=== PATIENT | male | born 1940 | race Caucasian/White ===

== ENCOUNTER → 2016-07-28 | Outpatient (CLI) | payer OTHER ==
[2016-07-28 12:32] LABS: BASOPHILS # (AUTO) 0.1 X10^3/uL (0.0-0.1); BASOPHILS % (AUTO) 1.2 % (0.2-1.0); EOSINOPHILS # (AUTO) 0.1 x10^3/uL (0.0-0.2); EOSINOPHILS % (AUTO) 1.6 % (0.9-2.9); HEMATOCRIT 46.2 % (42.0-54.0); LYMPHOCYTES # (AUTO) 1.3 X10^3/uL (1.3-2.9); LYMPHOCYTES % (AUTO) 14.7 % (21.0-51.0); MEAN CORPUSCULAR HEMOGLOBIN 29.9 pg (27.0-34.0); MEAN CORPUSCULAR HGB CONC 32.4 g/dL (33.0-35.0); MEAN CORPUSCULAR VOLUME 92.3 fL (80.0-100.0); MEAN PLATELET VOLUME 7.1 fL (7.4-11.0); MONOCYTES % (AUTO) 10.9 % (0.0-13.0); NEUTROPHILS # (AUTO) 6.4 x10^3/uL (2.2-4.8); NEUTROPHILS % (AUTO) 71.6 % (42.0-75.0); PLATELET COUNT 256 X10^3/uL (150.0-450.0); RED CELL DISTRIBUTION WIDTH 16.4 % (11.6-16.5)
[2016-07-28 12:43] LABS: BILIRUBIN,URINE NEGATIVE (NEGATIVE); BLOOD/HEMOGLOBIN,URINE NEGATIVE (NEGATIVE); GLUCOSE, URINE NEGATIVE (NEGATIVE); KETONES,URINE NEGATIVE (NEGATIVE); LEUKOCYTE ESTERASE ,URINE NEGATIVE (NEGATIVE); NITRITES,URINE NEGATIVE (NEGATIVE); PROTEIN,URINE NEGATIVE (NEGATIVE); UROBILINOGEN,URINE NORMAL (NORMAL)
[2016-07-28 12:50] LABS: ALANINE AMINOTRANSFERASE 38 Units/L (12-78); ALBUMIN 3.9 g/dL (3.4-5.0); ALKALINE PHOSPHATASE 81 Units/L (46-116); ASPARTATE AMINO TRANSFERASE 33 Units/L (15-37); BLOOD UREA NITROGEN 31 mg/dL (7-18); CALCIUM 9.2 mg/dL (8.5-10.1); CARBON DIOXIDE 31.1 mmol/L (21-32); CHLORIDE 104 mmol/L (98-107); GLUCOSE 94 mg/dL (65-99); SODIUM 142 mmol/L (136-145); TOTAL PROTEIN 7.9 g/dL (6.4-8.2); eGFR BLACK RACES 55 (>60); eGFR NON BLACK RACES 45 (>60)
[2016-07-28 12:52] LABS: APPEARANCE,URINE CLEAR (CLEAR); BACTERIA,URINE TRACE /HPF (NEGATIVE); COLOR,URINE YELLOW (YELLOW); RBC,URINE 0-2 /HPF (NEGATIVE); SQUAMOUS EPITHELIAL CELL,UR RARE /HPF (NEGATIVE)
--- NOTE | 2016-07-28 13:48 | RAD ---
HISTORY: Preop for left arm and nerve repair Study: PA and lateral views of the chest. Comparison: None. Findings: The cardiomediastinal silhouette is normal. No focal consolidations, pleural effusions or pneumothor ax. Osseous structures demonstrate no acute abnormality. There is flattening and elevation of the ri ght hemidiaphragm. Spinal straightening rods in place. Dual lead AICD in place. IMPRESSION: 1. No acute cardiopulmonary process. 2. Elevation and flattening of the right hemidiaphragm may represent diaphragmatic nerve palsy or po ssibly trace pleural effusion. Reported By:
== END ==
LOC: LAB 11:33
PROVIDERS: ATTEND Orthopaedic Surgery
DX: Z01.818 Encounter for other preprocedural examination (principal); Z01.810 Encounter for preprocedural cardiovascular examination; Z01.811 Encounter for preprocedural respiratory examination; Z11.8 Encounter for screening for other infectious and parasitic diseases; Z79.899 Other long term (current) drug therapy; Z79.01 Long term (current) use of anticoagulants; G56.22 Lesion of ulnar nerve, left upper limb
CPT/HCPCS: 36415; 71020; 80053; 81001; 85025; 85610; 85730; 87641; 93005; 93010

== ENCOUNTER → 2016-08-03 | Outpatient (CLI) | payer OTHER | LOC: LAB 09:44 | PROVIDERS: ATTEND Orthopaedic Surgery | DX: Z79.01 Long term (current) use of anticoagulants (principal); G56.02 Carpal tunnel syndrome, left upper limb | CPT/HCPCS: 36415; 85610; 85730 ==

== ENCOUNTER → 2016-08-04 | Day surgery (SDC) | payer OTHER ==
[~2016-08-04] MED LIST: BACTROBAN OINT ONE; D5 LR 1000 ML 1,000 ML IV ONE; DIPRIVAN VIAL ONE; HYDROGEN PEROXIDE 3% ONE; KETALAR ONE; MARCAINE 0.25% INJ ONE; NAROPIN 0.75% ONE; NS IRRIGATION 1000 ML 1,000 ML with BACITRACIN VIAL 50,000 UNT IR ONE; PERCOCET TAB 5/325 MG ONE; PERCOCET TAB 5/325 MG PO ONE; PERCOCET TAB 5/325 MG PO PRN; PHENERGAN INJ 25 MG ONE; XYLOCAINE 2 % (PLAIN) ONE; ZOFRAN INJ 4 MG VIAL IVP PRN; ZOFRAN TAB 4 MG ONE
[2016-08-04] MEDS: ANCEF VIAL 1 GM ONE ×2 (07:37→08:15)
[2016-08-04] MEDS: NS 50 ML IV + SPIKE MINIBAG* 50 ML IV ONE ×2 (07:38→08:15)
--- NOTE | 2016-08-04 11:09 | DR.ADDEND ---
Addendum - Addendum Addendum: Anesthesia Procedure Note After informed consent. Pt placed in semifowlers. Sterile prep to L supraclavicular area. L subclavian artery observed using U/S. Brachial Plexus nerve bundle observed. 22ga Stimuplex needle, introduced and directed from lateral to medical in U/S/ plane toward Subclavian artery. 30ccs of a mixture of 2% lidocaine and 0.75% naropin administered after negative aspiration periarterially. Good block and no complictaions.
[2016-08-04 14:27] VITALS: BP 141/82
== END | disposition home or self-care (01) | DRG 42 ==
LOC: SURG1 06:12
PROVIDERS: ATTEND Orthopaedic Surgery
PROC: 01N50ZZ Release Median Nerve, Open Approach (ICD-10-PCS; principal; 2016-08-04 07:30)
PROC: 01N40ZZ Release Ulnar Nerve, Open Approach (ICD-10-PCS; principal; 2016-08-04 07:30)
DX: G56.22 Lesion of ulnar nerve, left upper limb (principal); G56.02 Carpal tunnel syndrome, left upper limb
CPT/HCPCS: 64415; 99100; A4222; S0020; S0181; J0690; J2001; J2550; J3490; J7120

== ENCOUNTER → 2017-01-03 | Outpatient (CLI) | payer OTHER ==
[2016-08-04 14:27] VITALS: BP 141/82
[2017-01-03 11:08] LABS: BASOPHILS # (AUTO) 0.1 X10^3/uL (0.0-0.1); BASOPHILS % (AUTO) 1.1 % (0.2-1.0); EOSINOPHILS # (AUTO) 0.2 x10^3/uL (0.0-0.2); EOSINOPHILS % (AUTO) 3.8 % (0.9-2.9); HEMATOCRIT 44.3 % (42.0-54.0); HEMOGLOBIN 14.3 g/dL (13.5-18.0); LYMPHOCYTES # (AUTO) 0.9 X10^3/uL (1.3-2.9); LYMPHOCYTES % (AUTO) 13.4 % (21.0-51.0); MEAN CORPUSCULAR HEMOGLOBIN 26.9 pg (27.0-34.0); MEAN CORPUSCULAR HGB CONC 32.2 g/dL (33.0-35.0); MEAN CORPUSCULAR VOLUME 83.6 fL (80.0-100.0); MEAN PLATELET VOLUME 6.9 fL (7.4-11.0); MONOCYTES # (AUTO) 0.6 x10^3/uL (0.3-0.8); MONOCYTES % (AUTO) 9.5 % (0.0-13.0); NEUTROPHILS # (AUTO) 4.8 x10^3/uL (2.2-4.8); NEUTROPHILS % (AUTO) 72.2 % (42.0-75.0); PLATELET COUNT 246 X10^3/uL (150.0-450.0); RED BLOOD COUNT 5.31 X10^6/uL (4.7-6.0); WHITE BLOOD COUNT 6.6 X10^3/uL (3.6-10.0)
[2017-01-03 11:14] LABS: BILIRUBIN,URINE NEGATIVE (NEGATIVE); BLOOD/HEMOGLOBIN,URINE NEGATIVE (NEGATIVE); GLUCOSE, URINE NEGATIVE (NEGATIVE); KETONES,URINE NEGATIVE (NEGATIVE); LEUKOCYTE ESTERASE ,URINE NEGATIVE (NEGATIVE); NITRITES,URINE NEGATIVE (NEGATIVE); PROTEIN,URINE NEGATIVE (NEGATIVE); UROBILINOGEN,URINE NORMAL (NORMAL)
[2017-01-03 11:19] LABS: ALANINE AMINOTRANSFERASE 43 Units/L (12-78); ALBUMIN 3.6 g/dL (3.4-5.0); ALKALINE PHOSPHATASE 105 Units/L (46-116); ASPARTATE AMINO TRANSFERASE 33 Units/L (15-37); BLOOD UREA NITROGEN 29 mg/dL (7-18); CALCIUM 9.5 mg/dL (8.5-10.1); CARBON DIOXIDE 31.7 mmol/L (21-32); CHLORIDE 103 mmol/L (98-107); CREATININE 1.63 mg/dL (0.70-1.30); SODIUM 139 mmol/L (136-145); TOTAL PROTEIN 7.7 g/dL (6.4-8.2); eGFR BLACK RACES 53 (>60); eGFR NON BLACK RACES 44 (>60)
[2017-01-03 11:31] LABS: APPEARANCE,URINE CLEAR (CLEAR); BACTERIA,URINE NEGATIVE /HPF (NEGATIVE); COLOR,URINE YELLOW (YELLOW); RBC,URINE NONE SEEN /HPF (NEGATIVE); SQUAMOUS EPITHELIAL CELL,UR NEGATIVE /HPF (NEGATIVE)
[2017-01-03 12:21] LABS: ERYTHROCYTE SEDIMENTATION RATE 9 MM/HOUR (0-15)
--- NOTE | 2017-01-04 08:09 | RAD ---
HISTORY: Preop ulnar nerve surgery Study: Chest PA and lateral Comparison: 07/28/2016 Findings: The patient is status post median sternotomy and CABG. There is a pacemaker present on the left. The heart is enlarged. No congestive heart failure is noted. No infiltrates or pleural effusions are iden tified. The bony thorax is unremarkable with the exception of postsurgical changes in the lower thora cic/upper lumbar spine. IMPRESSION: Cardiomegaly without congestive heart failure Lungs clear Reported By:
== END ==
LOC: LAB 10:25
PROVIDERS: ATTEND Orthopaedic Surgery
DX: Z01.818 Encounter for other preprocedural examination (principal); Z01.812 Encounter for preprocedural laboratory examination; Z79.899 Other long term (current) drug therapy; Z11.8 Encounter for screening for other infectious and parasitic diseases; Z01.810 Encounter for preprocedural cardiovascular examination; Z01.811 Encounter for preprocedural respiratory examination; G56.22 Lesion of ulnar nerve, left upper limb; I51.7 Cardiomegaly
CPT/HCPCS: 36415; 71020; 80053; 81001; 85025; 85610; 85652; 85730; 86140; 87641; 93005; 93010

== ENCOUNTER 2017-01-04 09:27 | Day surgery (SDC) | payer OTHER ==
[2017-01-04] MEDS ORDERED: NS 50 ML IV + SPIKE MINIBAG* 50 ML IV ONE (09:58)
[2017-01-04] MEDS ORDERED: D5 LR 1000 ML 1,000 ML IV ONE (09:58)
[2017-01-04] MEDS ORDERED: ANCEF VIAL 1 GM ONE (09:59)
[2017-01-04] MEDS ORDERED: NAROPIN 0.75% EPI ONE (11:24)
[2017-01-04] MEDS ORDERED: FENTANYL INJ 100 mcg ONE (11:24)
[2017-01-04] MEDS ORDERED: BACTROBAN OINT ONE (11:25)
[2017-01-04] MEDS ORDERED: XYLOCAINE 1% and EPINEPHRINE 1:100,000 ONE (11:25)
[2017-01-04] MEDS ORDERED: NS IRRIGATION 1000 ML 1,000 ML with BACITRACIN VIAL 50,000 UNT IR ONE ×2 (12:15)
[2017-01-04] MEDS ORDERED: ZOFRAN INJ 4 MG VIAL IVP PRN (13:29)
[2017-01-04] MEDS ORDERED: PERCOCET TAB 5/325 MG PO PRN (13:29)
[2017-01-04 14:27] VITALS: BP 112/78
[2017-01-04] MEDS ORDERED: VERSED ONE (15:24)
[2017-01-04] MEDS ORDERED: DIPRIVAN VIAL ONE (15:24)
--- NOTE | 2017-01-19 12:58 | OR.GENERIC ---
Post-Op Note Generic - Post-Op Note Operative Report: PREOPERATIVE DIAGNOSES: Left cubital tunnel syndrome and ulnar nerve entrapment. POSTOPERATIVE DIAGNOSES: Left cubital tunnel syndrome and ulnar nerve entrapment. PROCEDURE PERFORMED: Revision Decompression of the ulnar nerve, left elbow. DATE OF PROCEDURE: ~01/04/2017 ANESTHESIA: General. COMPLICATIONS: None. INDICATIONS FOR PROCEDURE: The patient is a 76-year-old male with a long-standing history of cubital tunnel syndrome which was treated with surgery. Patient did well initially for the first 3 months and then he returned back with recurrence of the pain. He was again Failed conservative treatment, including activity modifications, splinting and corticosteroid injection. Risks and benefits of revision left elbow ulnar nerve transposition were explained in detail to the patient and informed consent was obtained. The main risks included but were not limited to infection, nerve injury, bleeding complications, loss of elbow range of motion, strength and function; continued numbness and weakness in the hand; possible need for revision surgery and other anesthetic complications. The patient understood all these risks and wished to proceed with surgery. FINDINGS OF THE OPERATION: Extensive scarring noted around the length of the nerve. PROCEDURE: Perioperative antibiotics were infused. The patient was brought to the operating room and once an adequate general anesthesia was achieved, his left upper extremity was prepped and draped in standard sterile fashion. A sterile tourniquet was positioned and tourniquet was inflated at 250 mmHg. Time- out procedure was called. The medial epicondyle and the olecranon tip were well palpated. The incision was initiated at equidistant between the olecranon and the medial epicondyle extending 5-6 cm proximally and 8-10 cm distally. Using blunt dissection, branches of the medial brachial, and antebrachial cutaneous nerves were dissected and retracted out of the operative field. No neuroma from previous surgeries were noted. Anterior flap was further dissected across the medial epicondyle anterior to the antebrachial fasciae. The ulnar nerve was identified proximally. It was mobilized with a blunt and a sharp dissection proximally to the original place of Genesis, which was released sharply. The ulnar nerve was well-isolated before it entered the cubital tunnel. The arch of the FCU was divided from the previous surgery. The scar was elevated from the nerve and both the scar of the original release of FCU fascia and the Fernandes fascia were divided protecting the nerve under direct visualization. Distally, the dissection was carried between the 2 heads of the FCU. No compression of the nerve was performed between the heads of the FCU. The muscular branches were well protected. Similarly, the cutaneous branches in the arm and forearm were well protected. The venous plexus proximally and distally were well protected. The nerve was well mobilized from the cubital tunnel preserving the small longitudinal vessels accompanying it. Proximally, multiple vascular leashes were defined near the incision of the septum into the medial epicondyle, which were also protected. Once the in situ decompression of the ulnar nerve was performed proximally and distally, the elbow was flexed and extended. There was evidence of any subluxation. The ulnar nerve was then further dissected into the cubital tunnel to the level of the first motor branch. The nerve was freed from surrounding soft tissue with care taken to protect motor branch. The ulnar nerve was then transposed anterior to the medial epicondyle. Eaton sling was then fashioned from antebrachial fasciae and sutured to the anterior skin flap, using interrupted 3-0 Vicryl sutures. Again, the elbow was put through full motion and no compression points were identified. A finger was placed superiorly and an Army-Mcnary retractor was placed to the superior border of the incision to ensure that there was no constriction of the nerve throughout, even beyond the plane of the dissection. No external signs of compression in the formal for cysts, tumors, osteophytes on heterotopic ossification was noted. Satisfactory decompression was performed. No compression points or acute angles were identified. Tourniquet was released. Hemostasis was achieved. Subcutaneous layer was closed with 2-0 Vicryl and skin was approximated with racquel. A well-padded dressing was applied. The patient was then extubated and transferred to the recovery room in stable condition. There were no intraoperative complications noted. The patient tolerated the procedure very well.
== END 2017-01-04 14:27 | disposition home or self-care (01) ==
LOC: SURG1 09:27
PROVIDERS: ATTEND Orthopaedic Surgery
PROC: 01N40ZZ Release Ulnar Nerve, Open Approach (ICD-10-PCS; principal; 2017-01-04 10:15)
DX: G56.22 Lesion of ulnar nerve, left upper limb (principal); L90.5 Scar conditions and fibrosis of skin; Z79.01 Long term (current) use of anticoagulants; Z79.899 Other long term (current) drug therapy
CPT/HCPCS: 36415; 84132; 99100; A4222; J0690; J2001; J2250; J3010; J3490; J7120

== ENCOUNTER 2019-05-03 11:40 | Inpatient (IN) ==
[2019-05-03 13:36] VITALS: BMI 25.2
[2019-05-03] MEDS: LASIX IVP SCH ×2 (13:56→20:26)
[2019-05-03] MEDS: NS 1000 ML 1,000 ML IV SCH (13:56)
[2019-05-03 14:09] LABS: BASOPHILS # (AUTO) 0.1 X10^3/uL (0.0-0.1); BASOPHILS % (AUTO) 1.1 % (0.2-1.0); EOSINOPHILS # (AUTO) 0.2 x10^3/uL (0.0-0.2); EOSINOPHILS % (AUTO) 2.3 % (0.9-2.9); HEMOGLOBIN 16.7 g/dL (13.5-18.0); LYMPHOCYTES # (AUTO) 0.9 X10^3/uL (1.3-2.9); LYMPHOCYTES % (AUTO) 12.8 % (21.0-51.0); MEAN CORPUSCULAR HEMOGLOBIN 28.8 pg (27.0-34.0); MEAN CORPUSCULAR HGB CONC 32.2 g/dL (33.0-35.0); MEAN CORPUSCULAR VOLUME 89.5 fL (80.0-100.0); MEAN PLATELET VOLUME 7.8 fL (7.4-11.0); MONOCYTES # (AUTO) 0.7 x10^3/uL (0.3-0.8); MONOCYTES % (AUTO) 9.7 % (0.0-13.0); NEUTROPHILS # (AUTO) 5.4 x10^3/uL (2.2-4.8); NEUTROPHILS % (AUTO) 74.1 % (42.0-75.0); PLATELET COUNT 276 X10^3/uL (150.0-450.0); RED CELL DISTRIBUTION WIDTH 16.8 % (11.6-16.5); WHITE BLOOD COUNT 7.3 X10^3/uL (3.6-10.0)
[2019-05-03 14:16] LABS: ALBUMIN 3.6 g/dL (3.4-5.0); BILIRUBIN,DIRECT 0.2 mg/dL (0-0.2); TOTAL PROTEIN 7.7 g/dL (6.4-8.2)
--- NOTE | 2019-05-03 14:18 | RAD ---
HISTORYCHF, ARF, HYPERKALEMIASTUDYCHEST, 1 VIEWCOMPARISONX-ray 01/03/2017FINDINGSThe trachea is midline. The cardiac silhouette is enlarged without pulmonary venous congestion. Cardiac device leads are unchanged in position..Likely mild increased interstitial densities are seen, right greater than left. This appearance is similar to prior study. Mild blunting of the right CP angle is unchanged.No acute bony abnormality is seen.IMPRESSIONCardiomegaly without pulmonary venous congestion.Increased interstitial densities in the lungs could be pulmonary edema or chronic interstitial lung disease.Electronically signed by: Javier Cole (May 03, 2019 14:17:05)
--- NOTE | 2019-05-03 22:33 | DR.H&P ---
H&P - History & Physical for Day of: H&P Date: 05/03/19 - Chief Complaint Chief Complaint: COUGH, SOB, ELEVATED POTASSIUM, ELEVATED BUN AND CREATININE - History of Present Illness History of Present Illness: IS A 78 YEAR OLD PATIENT OF OURS WHO PRESENTED TO THE HOSPITAL A DIRECT ADMISSION. OUTPATIENT LABS WERE OBTAINED TODAY AND REVEALED AN ELEVATED POTASSIUM OF 6.1, BUN 61, CREATININE 2.64, BNP 550. HE REPORTED SYMPTOMS OF COUGH, SHORTNESS OF BREATH, AND LOWER EXTREMITY SWELLING. HE HAS A PAST MEDICAL HISTORY OF CVA, CHF, HTN, A-FIB, AND CABG. ON ADMISSION, VITALS WERE 98.2-70-19-95%-96/57. A CHEST XRAY WAS OBTAINED AND RE VEALED: Cardiomegaly without pulmonary venous congestion. Increased interstitial densities in the lungs could be pulmonary edema or chronic interstitial lung disease. WE STARTED HIM ON NORMAL SALINE AT 80 ML/HR AND LASIX 20MG IV BID. WE WILL REVIEW HIS HOME MEDICATIONS. OTHERWISE, WE WILL FOLLOW UP WITH AM LABS AND CHEST XRAY AND CONTINUE TO MONITOR. - Past Medical History Past Medical History: CHF, Coronary Artery Disease, CVA, Hypertension, [place] Additional Medical History: A-FIB - Past Surgical History Surgical History: CABG/Valve Surgery - Family History Family Medical History: Coronary Artery Disease - Social History Does patient currently use any type of tobacco product: No Have you used tobacco products in the last 12 months: No Type of Tobacco Use: None Does any household member use tobacco: No Alcohol Use: None Drug Use: None - Medications Home Medications: No Known Drug Allergies Allergy (Verified 01/04/17 10:11) CONTINUE taking the following medications furosemide 40 mg PO BID 05/03/19 [History] sacubitril-valsartan [Entresto] 1 tab PO BID 05/03/19 [History] simvastatin 20 mg PO HS 05/03/19 [History] tamsulosin 0.4 mg PO DAILY 05/03/19 [History] testosterone cypionate 100 mg IM WEEKLY 05/03/19 [History] - Review of Systems Constitutional: Weakness Eyes: No Symptoms Reported ENT: No Symptoms Reported Respiratory: See HPI, Cough, Shortness of Breath, SOB with Excertion Cardiovascular: Edema (LOWER EXTREMITY 2+ PITTING EDEMA ) Gastrointestinal: No Symptoms Reported Musculoskeletal: No Symptoms Reported Neurological: Weakness - Physical Exam Vital Signs: Temperature 98.6 F Pulse Rate [Bilateral Brachial 72 ] Respiratory Rate 18 Blood Pressure [Left Arm] 97/56 Blood Pressure 112/78 O2 Sat by Pulse Oximetry 95 Oriented: Normal Eyes: Normal Ear: Normal Nose: Normal Throat: Normal Respiratory: Diminished Throughout Cardiovascular: Edema (BLE 2+ PITTING EDEMA ) : Normal Auscultation: Bowel Sounds: Normal Palpation: Normal Tenderness: Normal Skin: Normal Musculoskeletal: Normal Psychiatric: Normal Mood Description: Calm Affect: Normal Speech Pattern: Clear - Assessment/Plan (1) CHF (congestive heart failure) Qualifiers: Heart failure type: unspecified Heart failure chronicity: acute on chronic Qualified Code(s): I50.9 - Heart failure, unspecified Status: Acute Plan: LASIX 20MG IV BID X 2 DOSES, RESUME HOME MEDS, CONTINUE TO MONITOR (2) Acute renal failure (ARF) Qualifiers: Acute renal failure type: unspecified Qualified Code(s): N17.9 - Acute kidney failure, unspecified Status: Acute Plan: NORMAL SALINE AT 80 ML/HR, CONTINUE TO MONITOR (3) Hyperkalemia Status: Acute Plan: NORMAL SALINE AT 80ML/HR, CONTINUE TO MONITOR - Allergies Allergies/Adverse Reactions: Allergies Allergy/AdvReac Type Severity Reaction Status Date / Time No Known Drug Allergies Allergy Verified 01/04/17 10:11
[2019-05-04] MEDS: NS 1000 ML 1,000 ML IV SCH ×2 (00:55→05:47)
[2019-05-04 06:23] LABS: BASOPHILS # (AUTO) 0.1 X10^3/uL (0.0-0.1); BASOPHILS % (AUTO) 0.9 % (0.2-1.0); EOSINOPHILS # (AUTO) 0.2 x10^3/uL (0.0-0.2); EOSINOPHILS % (AUTO) 2.8 % (0.9-2.9); HEMATOCRIT 47.7 % (42.0-54.0); HEMOGLOBIN 15.6 g/dL (13.5-18.0); LYMPHOCYTES # (AUTO) 1.2 X10^3/uL (1.3-2.9); LYMPHOCYTES % (AUTO) 16.6 % (21.0-51.0); MEAN CORPUSCULAR HEMOGLOBIN 28.7 pg (27.0-34.0); MEAN CORPUSCULAR HGB CONC 32.6 g/dL (33.0-35.0); MEAN CORPUSCULAR VOLUME 88.1 fL (80.0-100.0); MEAN PLATELET VOLUME 7.1 fL (7.4-11.0); MONOCYTES # (AUTO) 0.7 x10^3/uL (0.3-0.8); MONOCYTES % (AUTO) 10.4 % (0.0-13.0); NEUTROPHILS % (AUTO) 69.3 % (42.0-75.0); PLATELET COUNT 252 X10^3/uL (150.0-450.0); RED BLOOD COUNT 5.41 X10^6/uL (4.7-6.0); RED CELL DISTRIBUTION WIDTH 16.9 % (11.6-16.5); WHITE BLOOD COUNT 7.2 X10^3/uL (3.6-10.0)
[2019-05-04 06:39] LABS: ALANINE AMINOTRANSFERASE 34 Units/L (12-78); ALBUMIN 3.3 g/dL (3.4-5.0); ALKALINE PHOSPHATASE 73 Units/L (46-116); ASPARTATE AMINO TRANSFERASE 31 Units/L (15-37); BLOOD UREA NITROGEN 53 mg/dL (7-18); CALCIUM 8.2 mg/dL (8.5-10.1); CARBON DIOXIDE 29.3 mmol/L (21-32); CHLORIDE 104 mmol/L (98-107); COR CA(FOR HYPOALB) 8.8 mg/dL (8.5-10.1); CREATININE 1.95 mg/dL (0.70-1.30); SODIUM 139 mmol/L (136-145); eGFR NON BLACK RACES 36 (>60)
[2019-05-04 13:02] VITALS: BP 126/79
== END 2019-05-04 14:15 | disposition home or self-care (01) | DRG 292 ==
LOC: MED/SURG 12:22
PROVIDERS: ADMIT Internal Medicine; ATTEND Internal Medicine
DX: N17.8 Other acute kidney failure; I48.91 Unspecified atrial fibrillation; E87.5 Hyperkalemia; I50.9 Heart failure, unspecified; I25.10 Atherosclerotic heart disease of native coronary artery without angina pectoris; I11.0 Hypertensive heart disease with heart failure; R94.4 Abnormal results of kidney function studies; R60.0 Localized edema; R06.02 Shortness of breath
CPT/HCPCS: 36415; 71010; 71045; 80053; 80076; 85025; 85610; 94760; A4216; A4222; J1940; J7030

== ENCOUNTER 2020-08-18 11:23 | Inpatient (IN) ==
[2020-08-18] MEDS ORDERED: NS 1000 ML 1,000 ML IV SCH (12:02)
[2020-08-18 12:34] LABS: BASOPHILS # (AUTO) 0.1 X10^3/uL (0.0-0.1); BASOPHILS % (AUTO) 0.6 % (0.2-1.0); EOSINOPHILS # (AUTO) 0.1 x10^3/uL (0.0-0.2); EOSINOPHILS % (AUTO) 1.4 % (0.9-2.9); LYMPHOCYTES # (AUTO) 0.8 X10^3/uL (1.3-2.9); LYMPHOCYTES % (AUTO) 9.3 % (21.0-51.0); MEAN CORPUSCULAR HEMOGLOBIN 25.7 pg (27.0-34.0); MEAN CORPUSCULAR HGB CONC 31.8 g/dL (33.0-35.0); MEAN CORPUSCULAR VOLUME 80.7 fL (80.0-100.0); MEAN PLATELET VOLUME 7.5 fL (7.4-11.0); MONOCYTES # (AUTO) 0.7 x10^3/uL (0.3-0.8); MONOCYTES % (AUTO) 8.5 % (0.0-13.0); NEUTROPHILS # (AUTO) 6.7 x10^3/uL (2.2-4.8); NEUTROPHILS % (AUTO) 80.2 % (42.0-75.0); PLATELET COUNT 338 X10^3/uL (150.0-450.0); RED BLOOD COUNT 5.08 X10^6/uL (4.7-6.0); RED CELL DISTRIBUTION WIDTH 20.6 % (11.6-16.5); WHITE BLOOD COUNT 8.3 X10^3/uL (3.6-10.0)
[2020-08-18 12:44] LABS: ALANINE AMINOTRANSFERASE 42 Units/L (12-78); ALBUMIN 2.9 g/dL (3.4-5.0); ALKALINE PHOSPHATASE 277 Units/L (46-116); ASPARTATE AMINO TRANSFERASE 39 Units/L (15-37); BLOOD UREA NITROGEN 59 mg/dL (7-18); CALCIUM 9.4 mg/dL (8.5-10.1); CARBON DIOXIDE 28.4 mmol/L (21-32); CHLORIDE 102 mmol/L (98-107); COR CA(FOR HYPOALB) 10.3 mg/dL (8.5-10.1); CREATININE 1.89 mg/dL (0.70-1.30); SODIUM 136 mmol/L (136-145); TOTAL PROTEIN 8.1 g/dL (6.4-8.2); eGFR NON BLACK RACES 37 (>60)
[2020-08-18 12:56] LABS: ANISOCYTOSIS 1+; PLATELET MORPHOLOGY COMMENT NORMAL (NORMAL)
[2020-08-18 13:25] VITALS: BMI 24.0
--- NOTE | 2020-08-18 14:14 | RAD ---
HISTORYCHFSTUDYCHEST x-ray, two viewsCOMPARISONX-ray 12/25/2019FINDINGSWorsening cardiomegaly. Probable CHF. Cardiac device leads are unchanged in position. Decreased inspiration compared to prior study with likely moderate bilateral pleural effusions. Increasing haziness in the right lung could be due to layering pleural fluid, pulmonary edema, or pneumonia. Possible mild left perihilar pulmonary edema.IMPRESSIONProbable CHF and pulmonary edema with pleural effusions. Less likely lung densities are due to pneumonia.Electronically signed by: Javier Cole (August 18, 2020 14:12:57)
[2020-08-18] MEDS ORDERED: LASIX IVP ONE ×2 (16:29→16:55)
[2020-08-18 17:48] LABS: BILIRUBIN,URINE NEGATIVE (NEGATIVE); BLOOD/HEMOGLOBIN,URINE 5+ (NEGATIVE); GLUCOSE, URINE NEGATIVE (NEGATIVE); KETONES,URINE NEGATIVE (NEGATIVE); LEUKOCYTE ESTERASE ,URINE 3+ (NEGATIVE); NITRITES,URINE NEGATIVE (NEGATIVE); PROTEIN,URINE 2+ (NEGATIVE); UROBILINOGEN,URINE NORMAL (NORMAL)
[2020-08-18] MEDS: NS 1000 ML 1,000 ML IV SCH (17:50)
[2020-08-18 17:57] LABS: APPEARANCE,URINE CLOUDY (CLEAR); COLOR,URINE YELLOW (YELLOW)
[2020-08-18 17:58] LABS: AMORPHOUS SEDIMENT,UR 1+ /HPF (NEGATIVE); BACTERIA,URINE 1+ /HPF (NEGATIVE); OTHER CASTS, URINE FEW /LPF (NEGATIVE); SQUAMOUS EPITHELIAL CELL,UR RARE /HPF (NEGATIVE)
--- NOTE | 2020-08-19 04:19 | RAD ---
PROCEDURE: Chest X-ray 1 View .HISTORY: Short of breath.TECHNIQUE: AP view .COMPARISON: 08/18/2020.TECHNICAL QUALITY: Satisfactory .FINDINGS:Unchanged moderate cardiomegaly with pacemaker on the left and previous sternotomy.Mediastinum and hilar regions show no masses.Normal central vascularity.No pulmonary consolidation, masses, or pneumothorax. Unchanged blunted right lateral costophrenic angle could represent small effusion.IMPRESSION:1. Improved consolidation or edema right lung base with continued small effusion.2. Unchanged cardiomegaly.Electronically signed by: Jose Oscar (August 19, 2020 04:18:17)
[2020-08-19 05:14] LABS: BASOPHILS # (AUTO) 0.1 X10^3/uL (0.0-0.1); BASOPHILS % (AUTO) 0.7 % (0.2-1.0); EOSINOPHILS # (AUTO) 0.1 x10^3/uL (0.0-0.2); EOSINOPHILS % (AUTO) 1.6 % (0.9-2.9); HEMATOCRIT 37.5 % (42.0-54.0); HEMOGLOBIN 11.9 g/dL (13.5-18.0); LYMPHOCYTES # (AUTO) 0.8 X10^3/uL (1.3-2.9); MEAN CORPUSCULAR HEMOGLOBIN 25.6 pg (27.0-34.0); MEAN CORPUSCULAR HGB CONC 31.6 g/dL (33.0-35.0); MEAN CORPUSCULAR VOLUME 80.9 fL (80.0-100.0); MEAN PLATELET VOLUME 7.6 fL (7.4-11.0); MONOCYTES # (AUTO) 0.7 x10^3/uL (0.3-0.8); MONOCYTES % (AUTO) 7.7 % (0.0-13.0); NEUTROPHILS # (AUTO) 7.1 x10^3/uL (2.2-4.8); PLATELET COUNT 293 X10^3/uL (150.0-450.0); RED BLOOD COUNT 4.64 X10^6/uL (4.7-6.0); RED CELL DISTRIBUTION WIDTH 20.8 % (11.6-16.5); WHITE BLOOD COUNT 8.8 X10^3/uL (3.6-10.0)
[2020-08-19 05:36] LABS: ALANINE AMINOTRANSFERASE 39 Units/L (12-78); ALBUMIN 2.6 g/dL (3.4-5.0); ALKALINE PHOSPHATASE 242 Units/L (46-116); ASPARTATE AMINO TRANSFERASE 37 Units/L (15-37); BLOOD UREA NITROGEN 60 mg/dL (7-18); CALCIUM 8.7 mg/dL (8.5-10.1); CARBON DIOXIDE 27.1 mmol/L (21-32); CHLORIDE 106 mmol/L (98-107); COR CA(FOR HYPOALB) 9.8 mg/dL (8.5-10.1); CREATININE 1.89 mg/dL (0.70-1.30); SODIUM 141 mmol/L (136-145); eGFR NON BLACK RACES 37 (>60)
[2020-08-19 05:44] LABS: ANISOCYTOSIS 1+; MICROCYTOSIS SLIGHT; PLATELET MORPHOLOGY COMMENT NORMAL (NORMAL)
[2020-08-19] MEDS: NS 1000 ML 1,000 ML IV SCH ×2 (06:32→20:29)
[2020-08-19] MEDS: ENTRESTO 24/26 MG TAB PO SCH ×2 (11:24→20:27)
[2020-08-19] MEDS: LANOXIN or DIGITEK PO SCH (11:24)
[2020-08-19] MEDS: PriLOSEC PO SCH (11:25)
[2020-08-19] MEDS: SYNTHROID 50 mcg TAB PO SCH (11:26)
--- NOTE | 2020-08-19 11:43 | DR.H&P ---
H&P - History & Physical for Day of: H&P Date: 08/18/20 - Chief Complaint Chief Complaint: SOB, LOWER EXTREMITY SWELLING, ABDOMINAL SWELLING - History of Present Illness History of Present Illness: IS A 80 YEAR OLD PATIENT OF OURS WHO HAS BEEN FOLLOWED IN THE OFFICE AND TREATED FOR CHF AND RENAL FAILURE. HE RETURNED TODAY WITH RAPORTS OF INCREASED SWELLING TO HIS LOWER EXTREMITIES AND TO HIS ABDOMEN. PATIENT DID HAVE LABS DONE ONE WEEK PRIOR. HIS CREATININE LAST WEEK WAS ELEVATED AT 1.5, GFR 43. HIS POTASSIUM AT THAT TIME WAS 5.7. ON EXAMINATION TODAY, PATIENTS LOWER EXTREMITIES TODAY WERE NOTED TO HAVE 2+ PITTING EDEMA. HIS ABDOMEN WAS ALSO DISTENDED. HE WAS SENT TO THE HOSPITAL FOR FURTHER EVALUATION AND TREATMENT OF CHF, ACUTE RENAL FAILURE, SHORTNESS OF BREATH, AND EDEMA. ON ARRIVAL TO THE HOSPITAL, VITALS WERE 97.6-86-36-3%-102/57. LABS WERE OBTAINED. ABNORMAL LAB VALUES INCLUDED THE FOLLOWING: HGB 13.0, HCT 41.0, INR 3.50, POTASSIUM 5.5, BUN 59, CREATININE 1.89, GLUCOSE 105, AST 39, ALK PHOS 277, BNP 1700, ALBUMIN 2.9, GLOBULIN 5.2. A URINALYSIS WAS OBTAINED AND REVEALED: WBC 30-50, RBC 10-20, LEUKOCYTES 3+, BACTERIA 1+, OCCULT BLOOD 5+. A URINE CULTURE WAS SET UP. A CHEST XRAY WAS OBTAINED AND REVEALED: Probable CHF and pulmonary edema with pleural effusions. Less likely lung densities are due to pneumonia. HE HAD AN OUTPATIENT ECHO DONE IN [place] WHICH REVEALED AN EJECTION FRACTION OF 18%. HE WAS STARTED ON NORMAL SALINE AT O, LASIX 40MG IV X 1 DOSE, ROCEPHIN 1G IV DAILY, ENTRESTO 24/26MG TABLET DAILY, AND HIS HOME MEDICATIOSN OF DIGOXIN 0.125MG PO DAILY, KLONOPIN 0.5MG PO HS, SYNTHROID 50MCG PO DAILY, PRILOSEC 20MG PO DAILY, ZOCOR 20MG PO DAILY WERE RESUMED. WE WILL ORDER FOR HIM TO WEAR THE BIPAP AT NIGHT AND WHILE SLEEPING. OTHERWISE, WE WILL FOLLOW UP WITH AM LABS AND CONTINUE TO MONITOR. TIME SPENT ON CLINICAL ASSESSMENT, REVIEWING LABS AND IMAGING, DECISION MAKING, AND DOCUMENTATION GREATER THAN 75 MINUTES. - Past Medical History Past Medical History: CHF, Coronary Artery Disease, CVA, Hypertension, [place] Additional Medical History: A-FIB - Past Surgical History Surgical History: CABG/Valve Surgery, Ortho Surgery - Family History Family Medical History: Coronary Artery Disease - Social History Does any household member use tobacco: No Alcohol Use: None Drug Use: None - Medications Home Medications: No Known Drug Allergies Allergy (Verified 01/04/17 10:11) CONTINUE taking the following medications clonazepam 0.5 mg PO HS 08/18/20 [History] lorazepam 0.5 mg PO HS 08/18/20 [History] - Review of Systems Constitutional: Weakness Eyes: No Symptoms Reported ENT: No Symptoms Reported Respiratory: Shortness of Breath, SOB with Excertion Cardiovascular: Edema (LOWER EXTREMITY AND ABDOMINAL SWELLING ) Genitourinary: No Symptoms Reported Musculoskeletal: No Symptoms Reported Skin: No Symptoms Reported Neurological: Weakness - Physical Exam Vital Signs: Temperature 98.0 F Pulse Rate [Apical] 76 Pulse Rate 68 Respiratory Rate 22 Blood Pressure [Right Arm] 129/90 Blood Pressure [Left Arm] 126/79 O2 Sat by Pulse Oximetry 99 Oriented: Normal Eyes: Normal Ear: Normal Nose: Normal Throat: Normal Respiratory: Diminished Throughout Cardiovascular: Edema (BLE 2+ PITTING EDEMA ) : Normal Auscultation: Bowel Sounds: Normal Palpation: Normal Tenderness: Other (DISTENDED ) Skin: Normal Musculoskeletal: Normal Psychiatric: Normal Mood Description: Calm Affect: Normal Speech Pattern: Clear - Assessment/Plan (1) CHF exacerbation Qualifiers: Heart failure type: unspecified Qualified Code(s): I50.9 - Heart failure, unspecified Status: Acute Plan: ADMIT, NORMAL SALINE AT KVO, LASIX 40MG IV X 1 DOSE, ROCEPHIN 1G IV DAILY, ENTRESTO 24/26MG TABLET DAILY, AND HIS HOME MEDICATIONS OF DIGOXIN 0.125MG PO DAILY, KLONOPIN 0.5MG PO HS, SYNTHROID 50MCG PO DAILY, PRILOSEC 20MG PO DAILY, ZOCOR 20MG PO DAILY WERE RESUMED. (2) Acute renal failure (ARF) Qualifiers: Acute renal failure type: unspecified Status: Acute (3) Urinary tract infection Qualifiers: Urinary tract infection type: site unspecified Hematuria presence: with hematuria Qualified Code(s): N39.0 - Urinary tract infection, site not specified; R31.9 - Hematuria, unspecified Status: Acute (4) Hyperkalemia Status: Acute - Allergies Allergies/Adverse Reactions: Allergies Allergy/AdvReac Type Severity Reaction Status Date / Time No Known Drug Allergies Allergy Verified 01/04/17 10:11
[2020-08-19] MEDS: ROCEPHIN VIAL 1 GRAM 1 G in NS 100 ML IV + SPIKE MINIBAG* 100 ML IV SCH (12:14)
[2020-08-19] MEDS: ZOCOR TAB 20 MG PO SCH (20:28)
[2020-08-19] MEDS: KLONOPIN TAB 0.5 MG PO SCH (21:59)
[2020-08-20 04:47] LABS: BASOPHILS # (AUTO) 0.1 X10^3/uL (0.0-0.1); BASOPHILS % (AUTO) 1.1 % (0.2-1.0); EOSINOPHILS # (AUTO) 0.3 x10^3/uL (0.0-0.2); EOSINOPHILS % (AUTO) 3.9 % (0.9-2.9); HEMATOCRIT 37.2 % (42.0-54.0); LYMPHOCYTES # (AUTO) 0.9 X10^3/uL (1.3-2.9); LYMPHOCYTES % (AUTO) 11.8 % (21.0-51.0); MEAN CORPUSCULAR HEMOGLOBIN 26.2 pg (27.0-34.0); MEAN CORPUSCULAR HGB CONC 32.3 g/dL (33.0-35.0); MEAN CORPUSCULAR VOLUME 81.1 fL (80.0-100.0); MEAN PLATELET VOLUME 7.6 fL (7.4-11.0); MONOCYTES # (AUTO) 0.6 x10^3/uL (0.3-0.8); MONOCYTES % (AUTO) 8.1 % (0.0-13.0); NEUTROPHILS # (AUTO) 5.9 x10^3/uL (2.2-4.8); NEUTROPHILS % (AUTO) 75.1 % (42.0-75.0); PLATELET COUNT 283 X10^3/uL (150.0-450.0); RED BLOOD COUNT 4.59 X10^6/uL (4.7-6.0); RED CELL DISTRIBUTION WIDTH 21.2 % (11.6-16.5); WHITE BLOOD COUNT 7.9 X10^3/uL (3.6-10.0)
[2020-08-20 05:01] LABS: ALANINE AMINOTRANSFERASE 32 Units/L (12-78); ALBUMIN 2.2 g/dL (3.4-5.0); ALKALINE PHOSPHATASE 224 Units/L (46-116); ASPARTATE AMINO TRANSFERASE 26 Units/L (15-37); BLOOD UREA NITROGEN 52 mg/dL (7-18); CALCIUM 8.4 mg/dL (8.5-10.1); CARBON DIOXIDE 30.3 mmol/L (21-32); CHLORIDE 110 mmol/L (98-107); COR CA(FOR HYPOALB) 9.8 mg/dL (8.5-10.1); CREATININE 1.54 mg/dL (0.70-1.30); DIGOXIN < 0.20 ng/mL (0.9-2); SODIUM 146 mmol/L (136-145); TOTAL PROTEIN 6.4 g/dL (6.4-8.2); eGFR NON BLACK RACES 47 (>60)
[2020-08-20 05:05] LABS: ANISOCYTOSIS 1+; HYPOCHROMASIA SLIGHT; MICROCYTOSIS SLIGHT; PLATELET MORPHOLOGY COMMENT NORMAL (NORMAL)
--- NOTE | 2020-08-20 06:18 | RAD ---
HISTORYSOBSTUDYCHEST, 1 [id number]/21.TECHNIQUEAP view of the chestFINDINGSLeft chest wall pacemaker with leads in good position. Post median sternotomy and CABG. The cardiac silhouette is stably enlarged. Mediastinal contours appear stable. Similar appearance of scattered right worse than left lung interstitial opacities. Blunted costophrenic sulci. No discernible pneumothorax.IMPRESSIONSimilar appearance compared to prior. Interstitial opacities likely pulmonary edema. Small pleural effusions.Electronically signed by: Kevin Pryor (August 20, 2020 06:16:48)
[2020-08-20] MEDS: ENTRESTO 24/26 MG TAB PO SCH ×2 (09:24→21:26)
[2020-08-20] MEDS: PriLOSEC PO SCH (09:25)
[2020-08-20] MEDS: SYNTHROID 50 mcg TAB PO SCH (09:27)
[2020-08-20] MEDS: ROCEPHIN VIAL 1 GRAM 1 G in NS 100 ML IV + SPIKE MINIBAG* 100 ML IV SCH (09:28)
[2020-08-20] MEDS: LANOXIN or DIGITEK PO SCH (09:29)
--- NOTE | 2020-08-20 10:25 | PCM.PROG ---
Progress Note - Progress Note for Day of Date of Exam: 08/19/20 - Subjective Subjective: WAS ADMITTED FOR TREATMENT OF CHF EXACERBATION, ACUTE RENAL FAILURE, URINARY TRACT INFECTION, AND HYPERKALEMIA. TODAY, HE IS ALERT AND ORIENTED, SITTING UP IN BED ON MORNING ROUNDS. HE CONTINUES WITH COMPLAINTS OF SHORTNESS OF BREATH AND LOWER EXTREMITY SWELLING, ALTHOUGH, SYMPTOMS HAVE SLIGHTLY IMPROVED SINCE ADMISSION. ON EXAMINATION, HEART IS REGULAR IN RATE AND RHYTHM. BILATERAL LUNGS ARE NOTED WITH DIMINISHED LUNG SOUNDS THROUGHOUT. ABDOMEN IS ROUND, SOFT, AND NON-TENDER WITH NORMAL BOWEL SOUNDS NOTED IN ALL QUADRANTS. BILATERAL LOWER EXTREMITIES ARE NOTED WITH 1+ PITTING EDEMA. HIS VITALS THIS MORNING ARE: 98.0-76-22-99%-129/90. LABS WERE OBTAINED. ABNORMAL LAB VALUES INCLUDE THE FOLLOWING: RBC 4.64, HGB 11.9, HCT 37.5, INR 3.50, BUN 60, CREATININE 1.89, GLUCOSE 109, ALK PHOS 242, BNP 1420, ALBUMIN 2.6. URINE CULTURE IS PENDING. PRELIMINARY CULTURE DOES REVEALED GROWTH OF GRAM POSITIVE COCCI. A CHEST XRAY WAS OBTAINED TODAY AND REVEALED: 1. Improved consolidation or edema right lung base with continued small effusion. 2. Unchanged cardiomegaly. HE IS CURRENTLY RECEIVING NORMAL SALINE AT KVO, LASIX 40MG IV X 1 DOSE, ROCEPHIN 1G IV DAILY, ENTRESTO 24/26MG TABLET DAILY, AND HIS HOME MEDICATIOSN OF DIGOXIN 0.125MG PO DAILY, KLONOPIN 0.5MG PO HS, SYNTHROID 50MCG PO DAILY, PRILOSEC 20MG PO DAILY, ZOCOR 20MG PO DAILY WERE RESUMED. WE WILL CONTINUE WITH CURRENT PLAN OF CA RE TODAY. OTHERWISE, WE PLAN TO FOLLOW UP WITH AM LABS AND CONTINUE TO MONITOR. TIME SPENT ON CLINICAL ASSESSMENT, REVIEWING LABS AND IMAGING, DECISION MAKING, AND DOCUMENTATION GREATER THAN 45 MINUTES. - Past Medical Family Social History Past Med/Fam/Surg Hx: No changes since H&P Allergies: Allergies No Known Drug Allergies Allergy (Verified 01/04/17 10:11) - Review of Systems ROS: No change since H&P - Vital Signs and I&O's Vital Signs: Temperature 98 F Pulse Rate [Apical] 70 Pulse Rate 70 Respiratory Rate 18 Blood Pressure [Right Arm] 129/79 Blood Pressure [Left Arm] 126/79 O2 Sat by Pulse Oximetry 98 Intake and Output: Intake & Output 08/17/20 08/18/20 08/19/20 08/20/20 11:59 11:59 11:59 11:59 Intake Total 956 / 956 1599 / 1599 Output Total 1825 / 1825 1580 / 1580 Balance -869 / -869 - Physical Exam Oriented: Normal Eyes: Normal Ear: Normal Nose: Normal Throat: Normal Respiratory: Generalized, Diminished Cardiovascular: Edema (BLE 1+ PITTING EDEMA ) : Normal Auscultation: Bowel Sounds: Normal Palpation: Normal Tenderness: Other (DISTENDED ) Skin: Normal Musculoskeletal: Normal Psychiatric: Normal Mood Description: Calm Affect: Normal Speech Pattern: Clear, Appropriate - Laboratory and Diagnostics Result Diagrams: 08/20/20 04:05 08/20/20 04:05 Labs: 08/18/20 17:20 Urine,Catheterized Urine Culture - Final Enterococcus Faecalis Laboratory WBC 7.9 X10^3/uL (3.6-10.0) 08/20/20 04:05 RBC 4.59 X10^6/uL (4.7-6.0) L 08/20/20 04:05 Hgb 12.0 g/dL (13.5-18.0) L 08/20/20 04:05 Hct 37.2 % (42.0-54.0) L 08/20/20 04:05 MCV 81.1 fL (80.0-100.0) 08/20/20 04:05 MCH 26.2 pg (27.0-34.0) L 08/20/20 04:05 MCHC 32.3 g/dL (33.0-35.0) L 08/20/20 04:05 RDW 21.2 % (11.6-16.5) H 08/20/20 04:05 Plt Count 283 X10^3/uL (150.0-450.0) 08/20/20 04:05 Plt Count Comment Adequate (ADEQUATE) 08/20/20 04:05 MPV 7.6 fL (7.4-11.0) 08/20/20 04:05 Neut % (Auto) 75.1 % (42.0-75.0) H 08/20/20 04:05 Lymph % (Auto) 11.8 % (21.0-51.0) L 08/20/20 04:05 [place] % (Auto) 8.1 % (0.0-13.0) 08/20/20 04:05 Eos % (Auto) 3.9 % (0.9-2.9) H 08/20/20 04:05 Baso % (Auto) 1.1 % (0.2-1.0) H 08/20/20 04:05 Neut # (Auto) 5.9 x10^3/uL (2.2-4.8) H 08/20/20 04:05 Lymph # (Auto) 0.9 X10^3/uL (1.3-2.9) L 08/20/20 04:05 [place] # (Auto) 0.6 x10^3/uL (0.3-0.8) 08/20/20 04:05 Eos # (Auto) 0.3 x10^3/uL (0.0-0.2) H 08/20/20 04:05 Baso # (Auto) 0.1 X10^3/uL (0.0-0.1) 08/20/20 04:05 Absolute Nucleated RBC 0.0 /100WBC 08/20/20 04:05 Plt Morphology Comment Normal (NORMAL) 08/20/20 04:05 RBC Morphology Abnormal (NORMAL) 08/20/20 04:05 Hypochromasia Slight A 08/20/20 04:05 Anisocytosis 1+ A 08/20/20 04:05 Microcytosis Slight A 08/20/20 04:05 PT 32.4 SECONDS (11.8-14.3) 08/20/20 04:05 INR Target Range - 08/20/20 04:05 INR 3.35 (0.8-1.3) H 08/20/20 04:05 Sodium 146 mmol/L (136-145) H 08/20/20 04:05 Corrected Sodium TNP 08/20/20 04:05 Potassium 4.9 mmol/L (3.5-5.1) 08/20/20 04:05 Chloride 110 mmol/L (98-107) H 08/20/20 04:05 Carbon Dioxide 30.3 mmol/L (21-32) 08/20/20 04:05 BUN 52 mg/dL (7-18) H 08/20/20 04:05 Creatinine 1.54 mg/dL (0.70-1.30) H 08/20/20 04:05 Est GFR (MDRD) Af Amer 56 (>60) L 08/20/20 04:05 Est GFR (MDRD) Non-Af 47 (>60) L 08/20/20 04:05 Glucose 98 mg/dL (65-99) 08/20/20 04:05 Calcium 8.4 mg/dL (8.5-10.1) L 08/20/20 04:05 Corrected Calcium 9.8 mg/dL (8.5-10.1) 08/20/20 04:05 Total Bilirubin 0.70 mg/dL (0.2-1.0) 08/20/20 04:05 AST 26 Units/L (15-37) 08/20/20 04:05 ALT 32 Units/L (12-78) 08/20/20 04:05 Alkaline Phosphatase 224 Units/L (46-116) H 08/20/20 04:05 B-Natriuretic Peptide 1230 pg/mL (0-79) H* 08/20/20 04:05 Total Protein 6.4 g/dL (6.4-8.2) 08/20/20 04:05 Albumin 2.2 g/dL (3.4-5.0) L 08/20/20 04:05 Globulin 4.2 g/dL (2.5-4.5) 08/20/20 04:05 Albumin/Globulin Ratio 0.5 Ratio (1.1-2.1) L 08/20/20 04:05 Specimen Type Catherized urine 08/18/20 17:20 Urine Color Yellow (YELLOW) 08/18/20 17:20 Urine Appearance Cloudy (CLEAR) 08/18/20 17:20 Urine pH 5.0 (5.0 - 8.0) 08/18/20 17:20 Ur Specific [place] 1.015 (1.000-1.030) 08/18/20 17:20 Urine Protein 2+ (NEGATIVE) 08/18/20 17:20 Urine Glucose (UA) Negative (NEGATIVE) 08/18/20 17:20 Urine Ketones Negative (NEGATIVE) 08/18/20 17:20 Urine Occult Blood 5+ (NEGATIVE) 05/18/21 17:20 Urine Nitrite Negative (NEGATIVE) 08/18/20 17:20 Urine Bilirubin Negative (NEGATIVE) 08/18/20 17:20 Urine Urobilinogen Normal (NORMAL) 08/18/20 17:20 Ur Leukocyte Esterase 3+ (NEGATIVE) 08/18/20 17:20 Urine RBC 10-20 /HPF (0-3) A 08/18/20 17:20 Urine WBC 30-50 /HPF (0-5) A 08/18/20 17:20 Ur Squamous Epith Cells Rare /HPF (NEGATIVE) 08/18/20 17:20 Amorphous Sediment 1+ /HPF (NEGATIVE) 08/18/20 17:20 Urine Bacteria 1+ /HPF (NEGATIVE) 08/18/20 17:20 Other Casts Few /LPF (NEGATIVE) 08/18/20 17:20 Ur Culture Indicated? Yes/culture set up 08/18/20 17:20 Digoxin < 0.20 ng/mL (0.9-2) L 08/20/20 04:05 - Plan (1) CHF exacerbation Status: Acute Qualifiers: Heart failure type: unspecified Qualified Code(s): I50.9 - Heart failure, unspecified Plan: NORMAL SALINE AT KVO, LASIX 40MG IV X 1 DOSE, ROCEPHIN 1G IV DAILY, ENTRESTO 24/26MG TABLET DAILY, AND HIS HOME MEDICATIONS OF DIGOXIN 0.125MG PO DAILY, KLONOPIN 0.5MG PO HS, SYNTHROID 50MCG PO DAILY, PRILOSEC 20MG PO DAILY, ZOCOR 20MG PO DAILY WERE RESUMED. (2) Acute renal failure (ARF) Status: Acute Qualifiers: Acute renal failure type: unspecified (3) Urinary tract infection Status: Acute Qualifiers: Urinary tract infection type: site unspecified Hematuria presence: with hematuria Qualified Code(s): N39.0 - Urinary tract infection, site not specified; R31.9 - Hematuria, unspecified (4) Hyperkalemia Status: Acute
--- NOTE | 2020-08-20 10:29 | PCM.PROG ---
Progress Note - Progress Note for Day of Date of Exam: 08/20/20 - Subjective Subjective: WAS ADMITTED FOR TREATMENT OF CHF EXACERBATION, ACUTE RENAL FAILURE, URINARY TRACT INFECTION, AND HYPERKALEMIA. TODAY, HE IS ALERT AND ORIENTED, SITTING UP IN BED ON MORNING ROUNDS. HE CONTINUES WITH COMPLAINTS OF SHORTNESS OF BREATH AND LOWER EXTREMITY SWELLING, ALTHOUGH, SYMPTOMS HAVE SLIGHTLY IMPROVED SINCE ADMISSION. ON EXAMINATION, HEART IS REGULAR IN RATE AND RHYTHM. BILATERAL LUNGS ARE NOTED WITH DIMINISHED LUNG SOUNDS THROUGHOUT. ABDOMEN IS ROUND, SOFT, AND NON-TENDER WITH NORMAL BOWEL SOUNDS NOTED IN ALL QUADRANTS. BILATERAL LOWER EXTREMITIES ARE NOTED WITH 1+ PITTING EDEMA. HIS VITALS THIS MORNING ARE: 98.0-70-18-98%-129/79. LABS WERE OBTAINED. ABNORMAL LAB VALUES INCLUDE THE FOLLOWING: RBC 4.59, HGB 12.0, HCT 37.2, INR 3.35, CHLORIDE 110, BUN 52, CREATININE 1.54, CALCIUM 8.4, ALK PHOS 224, BNP 1230, ALBUMIN 2.2. URINE CULTURE REVEALS GROWTH OF ENTEROCOCCUS FAECALIS. A CHEST XRAY WAS OBTAINED TODAY AND REVEALED: Similar appearance compared to prior. Interstitial opacities likely pulmonary edema. Small pleural effusions. HE IS CURRENTLY RECEIVING NORMAL SALINE AT [facility], ROCEPHIN 1G IV DAILY, ENTRESTO 24/26MG TABLET DAILY, AND HIS HOME MEDICATIOSN OF DIGOXIN 0.125MG PO DAILY, KLONOPIN 0.5MG PO HS, SYNTHROID 50MCG PO DAILY, PRILOSEC 20MG PO DAILY, ZOCOR 20MG PO DAILY WERE RESUMED. WE WILL DISCONTINUE THE ROCEPHIN AND START CIPRO 400MG IV BID. WE WILL ALSO ADD ALDACTONE 25MG PO DAILY. OTHERWISE, WE WILL CONTINUE WITH CURRENT PLAN OF CARE TODAY. WE PLAN TO FOLLOW UP WITH AM LABS AND CONTINUE TO MONITOR. TIME SPENT ON CLINICAL ASSESSMENT, REVIEWING LABS AND IMAGING, DECISION MAKING, AND DOCUMENTATION GREATER THAN 45 MINUTES. - Past Medical Family Social History Past Med/Fam/Surg Hx: No changes since H&P Allergies: Allergies No Known Drug Allergies Allergy (Verified 01/04/17 10:11) - Review of Systems ROS: No change since H&P - Vital Signs and I&O's Vital Signs: Temperature 98 F Pulse Rate [Apical] 70 Pulse Rate 70 Respiratory Rate 18 Blood Pressure [Right Arm] 129/79 Blood Pressure [Left Arm] 126/79 O2 Sat by Pulse Oximetry 98 Intake and Output: Intake & Output 08/17/20 08/18/20 08/19/20 08/20/20 11:59 11:59 11:59 11:59 Intake Total 956 / 956 1599 / 1599 Output Total 1825 / 1825 1580 / 1580 Balance -869 / -869 - Physical Exam Oriented: Normal Eyes: Normal Ear: Normal Nose: Normal Throat: Normal Respiratory: Generalized, Diminished Cardiovascular: Edema (BLE 1+ PITTING EDEMA ) : Normal Auscultation: Bowel Sounds: Normal Tenderness: Other (DISTENDED ) Skin: Normal Musculoskeletal: Normal Psychiatric: Normal Mood Description: Calm Affect: Normal Speech Pattern: Clear, Appropriate - Laboratory and Diagnostics Result Diagrams: 08/20/20 04:05 08/20/20 04:05 Labs: 08/18/20 17:20 Urine,Catheterized Urine Culture - Final Enterococcus Faecalis Laboratory WBC 7.9 X10^3/uL (3.6-10.0) 08/20/20 04:05 RBC 4.59 X10^6/uL (4.7-6.0) L 08/20/20 04:05 Hgb 12.0 g/dL (13.5-18.0) L 08/20/20 04:05 Hct 37.2 % (42.0-54.0) L 08/20/20 04:05 MCV 81.1 fL (80.0-100.0) 08/20/20 04:05 MCH 26.2 pg (27.0-34.0) L 08/20/20 04:05 MCHC 32.3 g/dL (33.0-35.0) L 08/20/20 04:05 RDW 21.2 % (11.6-16.5) H 08/20/20 04:05 Plt Count 283 X10^3/uL (150.0-450.0) 08/20/20 04:05 Plt Count Comment Adequate (ADEQUATE) 08/20/20 04:05 MPV 7.6 fL (7.4-11.0) 08/20/20 04:05 Neut % (Auto) 75.1 % (42.0-75.0) H 08/20/20 04:05 Lymph % (Auto) 11.8 % (21.0-51.0) L 08/20/20 04:05 [place] % (Auto) 8.1 % (0.0-13.0) 08/20/20 04:05 Eos % (Auto) 3.9 % (0.9-2.9) H 08/20/20 04:05 Baso % (Auto) 1.1 % (0.2-1.0) H 08/20/20 04:05 Neut # (Auto) 5.9 x10^3/uL (2.2-4.8) H 08/20/20 04:05 Lymph # (Auto) 0.9 X10^3/uL (1.3-2.9) L 08/20/20 04:05 [place] # (Auto) 0.6 x10^3/uL (0.3-0.8) 08/20/20 04:05 Eos # (Auto) 0.3 x10^3/uL (0.0-0.2) H 08/20/20 04:05 Baso # (Auto) 0.1 X10^3/uL (0.0-0.1) 08/20/20 04:05 Absolute Nucleated RBC 0.0 /100WBC 08/20/20 04:05 Plt Morphology Comment Normal (NORMAL) 08/20/20 04:05 RBC Morphology Abnormal (NORMAL) 08/20/20 04:05 Hypochromasia Slight A 08/20/20 04:05 Anisocytosis 1+ A 08/20/20 04:05 Microcytosis Slight A 08/20/20 04:05 PT 32.4 SECONDS (11.8-14.3) 08/20/20 04:05 INR Target Range - 08/20/20 04:05 INR 3.35 (0.8-1.3) H 08/20/20 04:05 Sodium 146 mmol/L (136-145) H 08/20/20 04:05 Corrected Sodium TNP 08/20/20 04:05 Potassium 4.9 mmol/L (3.5-5.1) 08/20/20 04:05 Chloride 110 mmol/L (98-107) H 08/20/20 04:05 Carbon Dioxide 30.3 mmol/L (21-32) 08/20/20 04:05 BUN 52 mg/dL (7-18) H 08/20/20 04:05 Creatinine 1.54 mg/dL (0.70-1.30) H 08/20/20 04:05 Est GFR (MDRD) Af Amer 56 (>60) L 08/20/20 04:05 Est GFR (MDRD) Non-Af 47 (>60) L 08/20/20 04:05 Glucose 98 mg/dL (65-99) 08/20/20 04:05 Calcium 8.4 mg/dL (8.5-10.1) L 08/20/20 04:05 Corrected Calcium 9.8 mg/dL (8.5-10.1) 08/20/20 04:05 Total Bilirubin 0.70 mg/dL (0.2-1.0) 08/20/20 04:05 AST 26 Units/L (15-37) 08/20/20 04:05 ALT 32 Units/L (12-78) 08/20/20 04:05 Alkaline Phosphatase 224 Units/L (46-116) H 08/20/20 04:05 B-Natriuretic Peptide 1230 pg/mL (0-79) H* 08/20/20 04:05 Total Protein 6.4 g/dL (6.4-8.2) 08/20/20 04:05 Albumin 2.2 g/dL (3.4-5.0) L 08/20/20 04:05 Globulin 4.2 g/dL (2.5-4.5) 08/20/20 04:05 Albumin/Globulin Ratio 0.5 Ratio (1.1-2.1) L 08/20/20 04:05 Specimen Type Catherized urine 08/18/20 17:20 Urine Color Yellow (YELLOW) 08/18/20 17:20 Urine Appearance Cloudy (CLEAR) 08/18/20 17:20 Urine pH 5.0 (5.0 - 8.0) 08/18/20 17:20 Ur Specific [place] 1.015 (1.000-1.030) 08/18/20 17:20 Urine Protein 2+ (NEGATIVE) 08/18/20 17:20 Urine Glucose (UA) Negative (NEGATIVE) 08/18/20 17:20 Urine Ketones Negative (NEGATIVE) 05/18/21 17:20 Urine Occult Blood 5+ (NEGATIVE) 08/18/20 17:20 Urine Nitrite Negative (NEGATIVE) 08/18/20 17:20 Urine Bilirubin Negative (NEGATIVE) 08/18/20 17:20 Urine Urobilinogen Normal (NORMAL) 08/18/20 17:20 Ur Leukocyte Esterase 3+ (NEGATIVE) 08/18/20 17:20 Urine RBC 10-20 /HPF (0-3) A 08/18/20 17:20 Urine WBC 30-50 /HPF (0-5) A 08/18/20 17:20 Ur Squamous Epith Cells Rare /HPF (NEGATIVE) 08/18/20 17:20 Amorphous Sediment 1+ /HPF (NEGATIVE) 08/18/20 17:20 Urine Bacteria 1+ /HPF (NEGATIVE) 08/18/20 17:20 Other Casts Few /LPF (NEGATIVE) 08/18/20 17:20 Ur Culture Indicated? Yes/culture set up 08/18/20 17:20 Digoxin < 0.20 ng/mL (0.9-2) L 08/20/20 04:05 - Plan (1) CHF exacerbation Status: Acute Qualifiers: Heart failure type: unspecified Qualified Code(s): I50.9 - Heart failure, unspecified Plan: NORMAL SALINE AT KVO, LASIX 40MG IV X 1 DOSE, CIPRO 400MG IV Q12H, ENTRESTO 24/26MG TABLET DAILY, ALDACTONE 25MG PO DAILY, AND HIS HOME MEDICATIONS OF DIGOXIN 0.125MG PO DAILY, KLONOPIN 0.5MG PO HS, SYNTHROID 50MCG PO DAILY, PRILOSEC 20MG PO DAILY, ZOCOR 20MG PO DAILY WERE RESUMED. (2) Acute renal failure (ARF) Status: Acute Qualifiers: Acute renal failure type: unspecified (3) Urinary tract infection Status: Acute Qualifiers: Urinary tract infection type: site unspecified Hematuria presence: with hematuria Qualified Code(s): N39.0 - Urinary tract infection, site not specified; R31.9 - Hematuria, unspecified (4) Hyperkalemia Status: Acute
[2020-08-20] MEDS: ALDACTONE TAB 25 MG PO SCH (11:08)
[2020-08-20] MEDS: NS 1000 ML 1,000 ML IV SCH (11:08)
[2020-08-20] MEDS: CIPRO IV 400 MG PREMIX* 400 MG/200 ML IV.SOLN. IV SCH ×2 (11:09→20:16)
[2020-08-20] MEDS: NORCO 7.5/325 MG TAB PO PRN (13:54)
--- NOTE | 2020-08-20 15:00 | VAS ---
HISTORYELEVATED D-DIMER, RIGHT LEG PAINSTUDYLOWER EXT VENOUS, UNILATERALCOMPARISONNoneTECHNIQUEMultiple ascencio scale and color flow Doppler images of the deep venous system were obtained of the right lower extremity.FINDINGSThe deep venous system of the right lower extremity was evaluated from the level of the common femoral vein through the popliteal vein. Normal color flow and augmentation can be observed. In addition, normal compression is seen throughout the deep venous system. Normal flow is also seen at the greater saphenous femoral junction.IMPRESSIONNeg ative for DVT in the right lower extremityElectronically signed by: KEITH YOU (August 20, 2020 14: 58:02)
[2020-08-20] MEDS ORDERED: COUMADIN TAB 5 MG (JANTOVEN) PO SCH (21:00)
[2020-08-20] MEDS: ZOCOR TAB 20 MG PO SCH (21:26)
[2020-08-20] MEDS: KLONOPIN TAB 0.5 MG PO SCH (21:26)
[2020-08-21] MEDS: NS 1000 ML 1,000 ML IV SCH ×2 (00:08→11:44)
[2020-08-21] MEDS: NORCO 7.5/325 MG TAB PO PRN (02:20)
[2020-08-21 05:11] LABS: BASOPHILS # (AUTO) 0.1 X10^3/uL (0.0-0.1); BASOPHILS % (AUTO) 0.8 % (0.2-1.0); EOSINOPHILS # (AUTO) 0.3 x10^3/uL (0.0-0.2); EOSINOPHILS % (AUTO) 3.2 % (0.9-2.9); HEMATOCRIT 38.7 % (42.0-54.0); LYMPHOCYTES # (AUTO) 0.8 X10^3/uL (1.3-2.9); LYMPHOCYTES % (AUTO) 8.6 % (21.0-51.0); MEAN CORPUSCULAR HEMOGLOBIN 25.8 pg (27.0-34.0); MEAN CORPUSCULAR HGB CONC 31.1 g/dL (33.0-35.0); MEAN CORPUSCULAR VOLUME 82.8 fL (80.0-100.0); MEAN PLATELET VOLUME 7.5 fL (7.4-11.0); MONOCYTES # (AUTO) 0.9 x10^3/uL (0.3-0.8); MONOCYTES % (AUTO) 9.5 % (0.0-13.0); NEUTROPHILS # (AUTO) 7.3 x10^3/uL (2.2-4.8); NEUTROPHILS % (AUTO) 77.9 % (42.0-75.0); PLATELET COUNT 262 X10^3/uL (150.0-450.0); RED BLOOD COUNT 4.67 X10^6/uL (4.7-6.0); RED CELL DISTRIBUTION WIDTH 21.2 % (11.6-16.5); WHITE BLOOD COUNT 9.4 X10^3/uL (3.6-10.0)
[2020-08-21 05:16] LABS: ALANINE AMINOTRANSFERASE 25 Units/L (12-78); ALBUMIN 2.1 g/dL (3.4-5.0); ALKALINE PHOSPHATASE 216 Units/L (46-116); ASPARTATE AMINO TRANSFERASE 21 Units/L (15-37); BLOOD UREA NITROGEN 34 mg/dL (7-18); CALCIUM 8.1 mg/dL (8.5-10.1); CARBON DIOXIDE 28.9 mmol/L (21-32); CHLORIDE 110 mmol/L (98-107); COR CA(FOR HYPOALB) 9.6 mg/dL (8.5-10.1); CREATININE 1.32 mg/dL (0.70-1.30); DIGOXIN 0.37 ng/mL (0.9-2); SODIUM 142 mmol/L (136-145); TOTAL PROTEIN 6.3 g/dL (6.4-8.2); eGFR NON BLACK RACES 56 (>60)
--- NOTE | 2020-08-21 06:08 | RAD ---
HISTORYSOBSTUDYCHEST, 1 [id number]/20/2021.TECHNIQUEAP view of the chestFINDINGSLeft chest wall pacemaker with leads in stable position. Post median sternotomy and CABG. The cardiac silhouette is stably enlarged. Mediastinal contours appear stable. No significant change in diffuse bilateral hazy and interstitial lung opacities. Small pleural effusions remain. No discernible pneumothorax.IMPRESSIONNo significant change.Electronically signed by: Kevin Pryor (August 21, 2020 06:05:57)
[2020-08-21 06:36] LABS: ANISOCYTOSIS 1+; HYPOCHROMASIA SLIGHT; PLATELET MORPHOLOGY COMMENT NORMAL (NORMAL)
[2020-08-21] MEDS: ENTRESTO 24/26 MG TAB PO SCH (09:15)
[2020-08-21] MEDS: SYNTHROID 50 mcg TAB PO SCH (09:16)
[2020-08-21] MEDS: PriLOSEC PO SCH (09:16)
[2020-08-21] MEDS: ALDACTONE TAB 25 MG PO SCH (09:17)
[2020-08-21] MEDS: LANOXIN or DIGITEK PO SCH (09:18)
[2020-08-21] MEDS: CIPRO IV 400 MG PREMIX* 400 MG/200 ML IV.SOLN. IV SCH (09:19)
[2020-08-21 10:34] VITALS: BP 143/71
== END 2020-08-21 11:10 | disposition home health service (06) | DRG 292 ==
LOC: MED/SURG → OBSVTOIN 11:44
PROVIDERS: ADMIT Internal Medicine; ATTEND Internal Medicine
DX: E87.5 Hyperkalemia; I50.9 Heart failure, unspecified; R60.0 Localized edema; R06.02 Shortness of breath; I11.0 Hypertensive heart disease with heart failure; R26.89 Other abnormalities of gait and mobility; N17.8 Other acute kidney failure; R31.9 Hematuria, unspecified; B95.2 Enterococcus as the cause of diseases classified elsewhere

== ENCOUNTER 2022-03-08 09:34 | Inpatient (IN) ==
[2022-03-08 09:45] VITALS: BMI 21.1
--- NOTE | 2022-03-08 10:18 | DR.GENAD ---
HPI Time Seen Time Seen by Provider: 03/08/22 10:17 PCP Primary Care Physician: DONI Complaint/Symptoms Chief Complaint Doctors Comments: 81 y/o male presents for evaluation. Having a cough over the past 4 days, coughing, mostly dry, worse at night. Also with exertional dyspnea. No congestion, sore throat, diarrhea or urinary issues. Did vomit once yesterday. Overall feels well at rest. + h/o heart disease. Took his meds this am, BP currently a bit lower than usual. Chief Complaint:: PT STATES HE HAS STAGE 4 HEART FAILURE AND FOR THE LAST FOUR NIGHTS HE HAS COUGHED MULTIPLE TIMES. PT HAS VOMITTED DUE TO COUGHING. COUGH IS WORSE WHEN LAYING DOWN. PT HAS NEBULIZER THEY HAVE BEEN USING AT HOME WITH AN INHALER. PT APPETITE AND FLUID INTAKE HAS DECREASED. STATES URINE IS VERY DARK. Self Treatment fo Chief Complaint: PT TAKES COREG, ENTRESTO,DIGOXIN, AND RESTORIL FOR SLEEP(LAST TAKEN THIS AM) Nurses notes reviewed Nurses Notes Review: Yes Source History Provided: Patient and Significant Other Mode of Arrival Mode of Arrival: Ambulatory Timing Onset of Chief Complaint: 03/03/22 PMH PMH Past Medical History: Yes Past Medical History: CHF and Hypothyroidism Past Medical History Comment: HYPERLIPIDEMIA, Past Surgical History: Yes Surgical History: Ortho Surgery and Other Past Surgical History Comment: CLAVICLE,RODS IN BACK, OPEN HEART SURGERY, Family History History of Family Medical Conditions: No Social History Does patient currently use any type of tobacco product: No Have you used tobacco products in the last 12 months: No Type of Tobacco Use: None Does any household member use tobacco: No Alcohol Use: None Do you use any recreational Drugs:: No Lives With: Spouse Lives Where: Home Infectious screening In the last 2 months have you had wt loss of >10#?: NO Have you had fever, night sweats or hemotysis?: No Have you traveled outside the country in the last 6 months?: No Isolation: Standard ROS Review of Systems Constitutional: Weakness and Fatigue Eyes: No Symptoms Reported ENTM: No Symptoms Reported Respiratoy: Non-Productive Cough and Short of Breath Cardiovascular: No Symptoms Reported Gastrointestinal/Abdominal: No Symptoms Reported Genitourinary: No Symptoms Reported Neurological: No Symptoms Reported Musculoskeletal: No Symptoms Reported Integumentary: No Symptoms Reported Hematologic/Lymphatic: No Symptoms Reported Psychiatric: No Symptoms Reported All Other Systems: Reviewed and Negative PE Vital Signs Vitals: Pulse Rate 71 Respiratory Rate 18 Blood Pressure [Right Arm] 143/71 Blood Pressure [Left Arm] 126/79 Blood Pressure 98/55 O2 Sat by Pulse Oximetry 100 General General Appearance: Alert and In No Apparent Distress Eyes Eye exam: PERRL and EOMI ENT ENT Exam: Normal Oropharynx and Mucous Membranes Moist Neck Neck Exam: Normal Inspection and Full ROM Respiratory Respiratory Exam: Normal Lung Sounds Bilat; negative Accessory Muscle Use or Respiratory Distress Cardiovascular Cardiovascular Exam: Regular Rate, Normal Rhythm and Normal Heart Sounds Abdominal Exam Abdominal Exam: Normal Inspection, Normal Bowel Sounds and Soft; negative Tenderness Extremities Extremities Exam: Normal Inspection; negative Edema Back Back Exam: Normal Inspection Neurologic Neurological Exam: Alert, Oriented X3 and CN II-XII Intact; negative Motor Sensory Deficit Skin Skin Exam: Warm and Dry COURSE Treatment Treatment: 81 y/o male with cough over the past 4 days, worse at night.W/u iniated. Pt given IV fluids. CXR with R sided infiltrate, c/w pneumonia. Given IV Rocephin. Labs show elevated BNP at 1,800. Does not have fluid over load of the exts. BP higher after IV fluids. Discussed with his attending, Dr Tijerina, will admit for further treatment. ROR Labs Reviewed Laboratory Results Reviewed?: Yes Result Diagrams: 03/08/22 10:52 03/08/22 10:52 Laboratory: WBC 10.5 X10^3/uL (3.6-10.0) H 03/08/22 10:52 RBC 4.84 X10^6/uL (4.7-6.0) 03/08/22 10:52 Hgb 14.1 g/dL (13.5-18.0) 03/08/22 10:52 Hct 43.5 % (42.0-54.0) 03/08/22 10:52 MCV 89.9 fL (80.0-100.0) 03/08/22 10:52 MCH 29.1 pg (27.0-34.0) 03/08/22 10:52 MCHC 32.4 g/dL (33.0-35.0) L 03/08/22 10:52 RDW 16.7 % (11.6-16.5) H 03/08/22 10:52 Plt Count 170 X10^3/uL (150.0-450.0) 03/08/22 10:52 MPV 8.3 fL (7.4-11.0) 03/08/22 10:52 Neut % (Auto) 86.3 % (42.0-75.0) H 03/08/22 10:52 Lymph % (Auto) 6.0 % (21.0-51.0) L 03/08/22 10:52 [place] % (Auto) 6.8 % (0.0-13.0) 03/08/22 10:52 Eos % (Auto) 0.4 % (0.9-2.9) L 03/08/22 10:52 Baso % (Auto) 0.5 % (0.2-1.0) 03/08/22 10:52 Neut # (Auto) 9.0 x10^3/uL (2.2-4.8) H 03/08/22 10:52 Lymph # (Auto) 0.6 X10^3/uL (1.3-2.9) L 03/08/22 10:52 [place] # (Auto) 0.7 x10^3/uL (0.3-0.8) 03/08/22 10:52 Eos # (Auto) 0.0 x10^3/uL (0.0-0.2) 03/08/22 10:52 Baso # (Auto) 0.1 X10^3/uL (0.0-0.1) 03/08/22 10:52 Absolute Nucleated RBC 0.0 /100WBC 03/08/22 10:52 PT 24.4 SECONDS (11.8-14.3) 03/08/22 10:52 INR Target Range - 03/08/22 10:52 INR 2.30 (0.8-1.3) H 03/08/22 10:52 Sodium 136 mmol/L (136-145) 03/08/22 10:52 Corrected Sodium TNP 03/08/22 10:52 Potassium 4.6 mmol/L (3.5-5.1) 03/08/22 10:52 Chloride 100 mmol/L (98-107) 03/08/22 10:52 Carbon Dioxide 31.8 mmol/L (21-32) 03/08/22 10:52 BUN 34 mg/dL (7-18) H 03/08/22 10:52 Creatinine 1.46 mg/dL (0.70-1.30) H 03/08/22 10:52 Est GFR (MDRD) Af Amer 60 (>60) 03/08/22 10:52 Est GFR (MDRD) Non-Af 50 (>60) L 03/08/22 10:52 Glucose 85 mg/dL (65-99) 03/08/22 10:52 Lactic Acid 1.9 mmol/L (0.4-2.0) 03/08/22 10:52 Calcium 8.4 mg/dL (8.5-10.1) L 03/08/22 10:52 Corrected Calcium 9.0 mg/dL (8.5-10.1) 03/08/22 10:52 Total Bilirubin 1.80 mg/dL (0.2-1.0) H 03/08/22 10:52 AST 27 Units/L (15-37) 03/08/22 10:52 ALT 26 Units/L (12-78) 03/08/22 10:52 Alkaline Phosphatase 151 Units/L (46-116) H 03/08/22 10:52 B-Natriuretic Peptide 1800 pg/mL (0-79) H* 03/08/22 10:52 Total Protein 7.8 g/dL (6.4-8.2) 03/08/22 10:52 Albumin 3.3 g/dL (3.4-5.0) L 03/08/22 10:52 Globulin 4.5 g/dL (2.5-4.5) 03/08/22 10:52 Albumin/Globulin Ratio 0.7 Ratio (1.1-2.1) L 03/08/22 10:52 Lipase 95 Units/L (73-393) 03/08/22 10:52 Digoxin 1.54 ng/mL (0.9-2) 03/08/22 10:52 SARS-CoV-2 (PCR) Negative (NEGATIVE) 03/08/22 10:44 Influenza Type A (PCR) Negative (NEGATIVE) 03/08/22 10:44 Influenza Type B (PCR) Negative (NEGATIVE) 03/08/22 10:44 RSV (PCR) Negative (NEGATIVE) 03/08/22 10:44 XRAY XRAY Interpreted by: Both X-ray Results: + increased marking of the right side c/w pneumonia. Opioid Opioid Risk Tool Total: 0 Total Score Risk Category: Low Risk Copyright: Mohan [employer]EN predicting aberrant behaviors Discharge Plan Diagnosis Discharge Problem: Pneumonia Discharge Plan Patient Disposition: 09 ADMITTED INPATIENT Condition: Stable
[2022-03-08] MEDS ORDERED: NS 500 ML IV 500 ML IV ONE (10:47)
[2022-03-08] MEDS ORDERED: NS 1,000 ML IV 1,000 ML ONE (10:48)
--- NOTE | 2022-03-08 11:00 | RAD ---
HISTORYCOUGH Relevant Clinical InformationSTUDYCHEST, 1 VIEWCOMPARISONNone available.FINDINGSThe trachea is midline. The cardiac silhouette is enlarged; status post median sternotomy. There is a left-sided cardiac pacing device with leads projecting in the right atrium and right ventricle. There is diffuse right-sided ground-glass disease with airspace disease in the right lower lobe. These findings would imply pneumonia. Please correlate medically and follow-up to resolution. Atypical unilateral right-sided pulmonary edema is also a possibility. This would be unusual but should be correlated medically as well. Emphysematous changes are seen throughout both lung eddy. The left lung is relatively clear. No pneumothorax is identified. No other cardiopulmonary abnormalities or changes are seen. An old left clavicular bony fracture deformity is seen.IMPRESSIONAs above.Electronically signed by: CARISA TAVAREZ III (Mar 08, 2022 10:59:09)
[2022-03-08 11:11] LABS: BASOPHILS # (AUTO) 0.1 X10^3/uL (0.0-0.1); BASOPHILS % (AUTO) 0.5 % (0.2-1.0); EOSINOPHILS % (AUTO) 0.4 % (0.9-2.9); HEMATOCRIT 43.5 % (42.0-54.0); HEMOGLOBIN 14.1 g/dL (13.5-18.0); LYMPHOCYTES # (AUTO) 0.6 X10^3/uL (1.3-2.9); MEAN CORPUSCULAR HEMOGLOBIN 29.1 pg (27.0-34.0); MEAN CORPUSCULAR HGB CONC 32.4 g/dL (33.0-35.0); MEAN CORPUSCULAR VOLUME 89.9 fL (80.0-100.0); MEAN PLATELET VOLUME 8.3 fL (7.4-11.0); MONOCYTES # (AUTO) 0.7 x10^3/uL (0.3-0.8); MONOCYTES % (AUTO) 6.8 % (0.0-13.0); NEUTROPHILS % (AUTO) 86.3 % (42.0-75.0); RED BLOOD COUNT 4.84 X10^6/uL (4.7-6.0); RED CELL DISTRIBUTION WIDTH 16.7 % (11.6-16.5); WHITE BLOOD COUNT 10.5 X10^3/uL (3.6-10.0)
[2022-03-08] MEDS ORDERED: ROCEPHIN VIAL 1 GRAM 1 G in NS 100 ML IV 100 ML IV SCH (11:12)
[2022-03-08] MEDS ORDERED: ROCEPHIN VIAL 1 GRAM ONE (11:20)
[2022-03-08] MEDS ORDERED: NS 100 ML IV 100 ML ONE (11:20)
[2022-03-08 11:25] LABS: ALANINE AMINOTRANSFERASE 26 Units/L (12-78); ALBUMIN 3.3 g/dL (3.4-5.0); ALKALINE PHOSPHATASE 151 Units/L (46-116); ASPARTATE AMINO TRANSFERASE 27 Units/L (15-37); BLOOD UREA NITROGEN 34 mg/dL (7-18); CALCIUM 8.4 mg/dL (8.5-10.1); CARBON DIOXIDE 31.8 mmol/L (21-32); CHLORIDE 100 mmol/L (98-107); CREATININE 1.46 mg/dL (0.70-1.30); DIGOXIN 1.54 ng/mL (0.9-2); LACTIC ACID 1.9 mmol/L (0.4-2.0); LIPASE 95 Units/L (73-393); SODIUM 136 mmol/L (136-145); TOTAL PROTEIN 7.8 g/dL (6.4-8.2); eGFR NON BLACK RACES 50 (>60)
[2022-03-08] MEDS ORDERED: TUSSIONEX PENNKINETIC SUSP PO PRN (13:34)
[2022-03-08] MEDS ORDERED: FORTAZ or TAZICEF VIAL INJ 1 G in NS 100 ML IV + SPIKE MINIBAG* 100 ML IV SCH (14:00)
[2022-03-08] MEDS ORDERED: LEVAQUIN PREMIX IV 500 MG 500 MG/100 ML BAG IV SCH (14:00)
[2022-03-08] MEDS ORDERED: NS 1/2 1,000 ML IV 1,000 ML IV ONE (14:07)
[2022-03-08] MEDS: ROBITUSSIN DM PO SCH ×3 (14:13→21:23)
[2022-03-08] MEDS: VSL#3 PO SCH (14:13)
[2022-03-08] MEDS: FORTAZ or TAZICEF VIAL INJ 1 G in NS 100 ML IV 100 ML IV SCH ×2 (14:13→21:23)
[2022-03-08] MEDS: NS 1/2 1,000 ML IV 1,000 ML IV SCH (14:16)
[2022-03-08] MEDS: DUONEB 0.5 MG/3 MG (3 mL) NEB SCH ×3 (17:05→20:48)
[2022-03-08] MEDS: PULMICORT NEB TX 0.5 MG NEB SCH ×2 (17:16→20:48)
[2022-03-08] MEDS ORDERED: RESTORIL CAP 15 MG PO PRN (21:32)
[2022-03-09] MEDS ORDERED: NS 1/2 1,000 ML IV 1,000 ML IV ONE ×2 (02:58→18:58)
[2022-03-09] MEDS: NS 1/2 1,000 ML IV 1,000 ML IV SCH ×3 (05:01→20:20)
[2022-03-09] MEDS: FORTAZ or TAZICEF VIAL INJ 1 G in NS 100 ML IV 100 ML IV SCH ×2 (05:08→20:24)
[2022-03-09 05:14] LABS: BASOPHILS # (AUTO) 0.1 X10^3/uL (0.0-0.1); BASOPHILS % (AUTO) 1.1 % (0.2-1.0); EOSINOPHILS # (AUTO) 0.2 x10^3/uL (0.0-0.2); EOSINOPHILS % (AUTO) 2.3 % (0.9-2.9); HEMATOCRIT 38.7 % (42.0-54.0); HEMOGLOBIN 12.6 g/dL (13.5-18.0); LYMPHOCYTES # (AUTO) 0.6 X10^3/uL (1.3-2.9); LYMPHOCYTES % (AUTO) 8.2 % (21.0-51.0); MEAN CORPUSCULAR HEMOGLOBIN 29.2 pg (27.0-34.0); MEAN CORPUSCULAR HGB CONC 32.7 g/dL (33.0-35.0); MEAN CORPUSCULAR VOLUME 89.3 fL (80.0-100.0); MEAN PLATELET VOLUME 8.2 fL (7.4-11.0); MONOCYTES # (AUTO) 0.6 x10^3/uL (0.3-0.8); MONOCYTES % (AUTO) 8.5 % (0.0-13.0); NEUTROPHILS % (AUTO) 79.9 % (42.0-75.0); RED BLOOD COUNT 4.33 X10^6/uL (4.7-6.0); RED CELL DISTRIBUTION WIDTH 16.8 % (11.6-16.5); WHITE BLOOD COUNT 7.5 X10^3/uL (3.6-10.0)
[2022-03-09 05:26] LABS: ALANINE AMINOTRANSFERASE 22 Units/L (12-78); ALBUMIN 2.7 g/dL (3.4-5.0); ALKALINE PHOSPHATASE 133 Units/L (46-116); ASPARTATE AMINO TRANSFERASE 22 Units/L (15-37); BLOOD UREA NITROGEN 31 mg/dL (7-18); CALCIUM 8.1 mg/dL (8.5-10.1); CARBON DIOXIDE 29.9 mmol/L (21-32); CHLORIDE 104 mmol/L (98-107); COR CA(FOR HYPOALB) 9.1 mg/dL (8.5-10.1); CREATININE 1.48 mg/dL (0.70-1.30); SODIUM 138 mmol/L (136-145); TOTAL PROTEIN 6.7 g/dL (6.4-8.2); eGFR NON BLACK RACES 49 (>60)
--- NOTE | 2022-03-09 07:59 | RAD ---
HISTORYshortness of breathSTUDYChest AP [id number]/21/2021FINDINGSTher e is a pacemaker present on the left obscuring a portion of the lateral left upper lobe. Patient is status post median sternotomy and CABG. The heart remains enlarged. No congestive heart failure is noted. Hazy infiltrates remain in the right lung. Left lung is clear. Blunting of the right costophrenic angle suggests small right pleural effusion, unchanged. Bony thorax is unremarkable.IMPRESSIONNo change cardiomegaly without congestive heart failureNo change hazy infiltrates right lungNo change blunting right costophrenic angle suggestive of a small right pleural effusionElectronically signed by: KENYATTA GALDAMEZ (Mar 09, 2022 07:57:52)
[2022-03-09] MEDS ORDERED: RESTORIL CAP 30 MG PO PRN (08:25)
[2022-03-09 08:39] LABS: INR 2.91 (0.8-1.3)
[2022-03-09] MEDS: LEVAQUIN PREMIX IV 250 MG 250 MG/50 ML BAG IV SCH (08:48)
[2022-03-09] MEDS: ROBITUSSIN DM PO SCH ×4 (08:50→20:25)
[2022-03-09] MEDS: VSL#3 PO SCH (08:50)
[2022-03-09] MEDS: LANOXIN or DIGITEK PO SCH (08:57)
[2022-03-09] MEDS: PriLOSEC PO SCH (08:57)
[2022-03-09] MEDS: SYNTHROID 50 mcg TAB PO SCH (08:57)
[2022-03-09] MEDS: DUONEB 0.5 MG/3 MG (3 mL) NEB SCH ×4 (09:30→20:45)
[2022-03-09] MEDS: PULMICORT NEB TX 0.5 MG NEB SCH ×2 (09:30→20:45)
--- NOTE | 2022-03-09 19:18 | DR.H&P ---
H&P - History & Physical for Day of: H&P Date: 03/08/22 - Chief Complaint Chief Complaint: COUGH, SHORT OF BREATH, WEAKNESS - History of Present Illness History of Present Illness: IS A 81 YEAR OLD PATIENT OF OURS. HE PRESENTED TO THE ER WITH COMPLAINTS OF INCREASING SHORTNESS OF BREATH AND CHEST PAIN. SYMPTOMS STARTED 2-3 DAYS AGO AND HAS PROGRESSIVELY GOTTEN WORSE. HE DESCRIBES PAINS PRESSURE-LIKE. HE RATES PAIN A 4/10. PATIENT STATES THAT HE HAS A HISTORY OF CAD AND CHF. HE REPORTS THAT HE HAS BEEN UNABLE TO WALK SHORT DISTANCES WITHOUT GETTING SHORT OF BREATH. HE FEELS IF HE IS OVERLOADED WITH FLUID. HE ALSO COMPLAINS OF HEADACHE AND DRY COUGH. HE HAS BEEN USING ENTRESTO AND LASIX AT HOME WITHOUT IMPROVEMENT IN SYMPTOMS. ON ARRIVAL TO THE HOSPITAL, HIS VITALS WERE: 98.0-71-18-96%-87/48. LABS WERE OBTAINED. WBC 10.5, RBC 4.84, HGB 14.1, HCT 43.5, PT 24.4, INR 2.30, SODIUM 136, CREATININE 1.46, GLUCOSE 85, LACTIC ACID 1.9, CALCIUM 8.4, TOTAL BILI 1.80, AST 27, ALT 26, ALK PHOS 151, BNP 1800, TOTAL PROTEIN 7.8, ALBUMIN 3.3, DIGOXIN 1.54. COVID, INFLUENZA, AND RSV NEGATIVE. A RESPIRATORY VIRUS PANEL WAS SENT OUT. BLOOD AND SPUTUM CULTURES WERE SET UP. A CHEST XRAY WAS OBTAINED AND REVEALED: The trachea is midline. The cardiac silhouette is enlarged; status post median sternotomy. There is a left- sided cardiac pacing device with leads projecting in the right atrium and right ventricle. There is diffuse right-sided ground-glass disease with airspace disease in the right lower lobe. These findings would imply pneumonia. Please correlate medically and follow-up to resolution. Atypical unilateral right-sided pulmonary edema is also a possibility. This would be unusual but should be correlated medically as well. Emphysematous changes are seen throughout both lung eddy. The left lung is relatively clear. No pneumothorax is identified. No other cardiopulmonary abnormalities or changes are seen. An old left clavicular bony fracture deformity is seen. IN THE ER, HE WAS GIVEN A NORMAL SALINE BOLUS X 2 LITERS. BLOOD PRESSURE ONLY INCREASED TO 98/55. HE WAS ADMITTED TO THE HOSPITAL FOR FURTHER EVALUATION AND TREATMENT OF PNEUMONIA AND HYPOTENSION. HE WAS STARTED ON NORMAL SALINE AT 75 ML/HR, LEVAQUIN 250MG IV DAILY, FORTAZ 1G IV BID, DUONEBS QID, PULMICORT NEBS BID, TUSSIONEX 5ML PO Q12H PRN, ROBITUSSIN DM 10ML PO QID. HIS HOME MEDICATIONS OF KLONOPIN, DIGOXIN, SYNTHROID, PRILOSEC, REQUIP, ZOCOR, COUMADIN, AND COREG WERE RESUMED. OTHERWISE, WE WILL FOLLOW-UP WITH AM LABS AND CHEST XRAY AND CONTINUE TO MONITOR. TIME SPENT ON CLINICAL ASSESSMENT, REVIEWING LABS AND IMAGING, DECISION MAKING, AND DOCUMENTATION GREATER THAN 75 MINUTES. - Past Medical History Past Medical History: CHF, Coronary Artery Disease, GERD, Hypothyroidism Additional Medical History: A-FIB - Past Surgical History Surgical History: CABG/Valve Surgery - Family History Family Medical History: Coronary Artery Disease - Social History Does patient currently use any type of tobacco product: No Have you used tobacco products in the last 12 months: No Type of Tobacco Use: None Does any household member use tobacco: No Alcohol Use: None Drug Use: None - Medications Home Medications: codeine Allergy (Verified 03/08/22 11:02) CONTINUE taking the following medications temazepam 30 mg capsule 30 mg PO QHS PRN 03/08/22 [History] testosterone cypionate 200 mg/mL intramuscular oil 1 ea subcut WEEKLY 03/08/22 [History] - Review of Systems Constitutional: Weakness Eyes: No Symptoms Reported ENT: No Symptoms Reported Respiratory: Cough, Shortness of Breath, SOB with Excertion Cardiovascular: No Symptoms Reported Gastrointestinal: No Symptoms Reported Genitourinary: No Symptoms Reported Musculoskeletal: No Symptoms Reported Skin: No Symptoms Reported Neurological: Weakness - Physical Exam Vital Signs: Temperature 99.3 F Pulse Rate [Left Brachial] 70 Pulse Rate [Right Brachial] 85 Pulse Rate 80 Respiratory Rate 20 Blood Pressure [Right Arm] 110/58 Blood Pressure [Left Arm] 104/58 Blood Pressure 100/58 O2 Sat by Pulse Oximetry 95 Oriented: Normal Eyes: Normal Ear: Normal Nose: Normal Throat: Normal Respiratory: Rales Throughout Cardiovascular: Normal : Normal Auscultation: Bowel Sounds: Normal Palpation: Normal Tenderness: Normal Skin: Normal Musculoskeletal: Normal Psychiatric: Normal Mood Description: Calm Affect: Normal Speech Pattern: Clear - Assessment/Plan (1) Pneumonia Qualifiers: Pneumonia type: due to unspecified organism Laterality: unspecified laterality Lung location: unspecified part of lung Qualified Code(s): J18.9 - Pneumonia, unspecified organism Status: Acute Plan: ADMIT, NORMAL SALINE AT 75 ML/HR, LEVAQUIN 250MG IV DAILY, FORTAZ 1G IV BID, DUONEBS QID, PULMICORT NEBS BID, TUSSIONEX 5ML PO Q12H PRN, ROBITUSSIN DM 10ML PO QID. HIS HOME MEDICATIONS OF KLONOPIN, DIGOXIN, SYNTHROID, PRILOSEC, REQUIP, ZOCOR, COUMADIN, AND COREG WERE RESUMED. (2) CHF (congestive heart failure) Qualifiers: Heart failure chronicity: acute on chronic Status: Acute (3) Generalized weakness Status: Acute - Allergies Allergies/Adverse Reactions: Allergies Allergy/AdvReac Type Severity Reaction Status Date / Time codeine Allergy Verified 03/08/22 11:02
[2022-03-09] MEDS: ZOCOR TAB 20 MG PO SCH (20:21)
[2022-03-09] MEDS: REQUIP PO SCH (20:21)
[2022-03-09] MEDS: COUMADIN TAB 5 MG (JANTOVEN) PO SCH (20:24)
[2022-03-09] MEDS: KLONOPIN TAB 0.5 MG PO SCH (20:25)
[2022-03-10 05:19] LABS: BASOPHILS % (AUTO) 0.6 % (0.2-1.0); EOSINOPHILS # (AUTO) 0.1 x10^3/uL (0.0-0.2); EOSINOPHILS % (AUTO) 1.9 % (0.9-2.9); HEMATOCRIT 37.7 % (42.0-54.0); HEMOGLOBIN 12.3 g/dL (13.5-18.0); LYMPHOCYTES # (AUTO) 0.8 X10^3/uL (1.3-2.9); MEAN CORPUSCULAR HEMOGLOBIN 29.1 pg (27.0-34.0); MEAN CORPUSCULAR HGB CONC 32.5 g/dL (33.0-35.0); MEAN CORPUSCULAR VOLUME 89.5 fL (80.0-100.0); MEAN PLATELET VOLUME 8.3 fL (7.4-11.0); MONOCYTES # (AUTO) 0.7 x10^3/uL (0.3-0.8); MONOCYTES % (AUTO) 10.2 % (0.0-13.0); NEUTROPHILS % (AUTO) 75.3 % (42.0-75.0); RED BLOOD COUNT 4.22 X10^6/uL (4.7-6.0); RED CELL DISTRIBUTION WIDTH 16.5 % (11.6-16.5); WHITE BLOOD COUNT 6.6 X10^3/uL (3.6-10.0)
[2022-03-10 05:22] LABS: INR 2.19 (0.8-1.3)
[2022-03-10 05:29] LABS: ALANINE AMINOTRANSFERASE 19 Units/L (12-78); ALBUMIN 2.5 g/dL (3.4-5.0); ALKALINE PHOSPHATASE 134 Units/L (46-116); ASPARTATE AMINO TRANSFERASE 20 Units/L (15-37); BLOOD UREA NITROGEN 27 mg/dL (7-18); CALCIUM 8.2 mg/dL (8.5-10.1); CARBON DIOXIDE 32.9 mmol/L (21-32); CHLORIDE 104 mmol/L (98-107); COR CA(FOR HYPOALB) 9.4 mg/dL (8.5-10.1); CREATININE 1.31 mg/dL (0.70-1.30); SODIUM 138 mmol/L (136-145); TOTAL PROTEIN 6.5 g/dL (6.4-8.2); eGFR NON BLACK RACES 56 (>60)
[2022-03-10] MEDS: NS 1/2 1,000 ML IV 1,000 ML IV SCH ×3 (08:17→21:54)
[2022-03-10] MEDS: ROBITUSSIN DM PO SCH ×4 (08:18→20:38)
[2022-03-10] MEDS: SYNTHROID 50 mcg TAB PO SCH (08:19)
[2022-03-10] MEDS: PriLOSEC PO SCH (08:19)
[2022-03-10] MEDS: LANOXIN or DIGITEK PO SCH (08:19)
[2022-03-10] MEDS: LEVAQUIN PREMIX IV 250 MG 250 MG/50 ML BAG IV SCH (08:19)
[2022-03-10] MEDS: VSL#3 PO SCH (08:19)
[2022-03-10] MEDS: PULMICORT NEB TX 0.5 MG NEB SCH ×2 (08:34→20:15)
[2022-03-10] MEDS: DUONEB 0.5 MG/3 MG (3 mL) NEB SCH ×4 (08:34→20:15)
[2022-03-10] MEDS: FORTAZ or TAZICEF VIAL INJ 1 G in NS 100 ML IV 100 ML IV SCH ×2 (09:02→20:40)
[2022-03-10] MEDS: LASIX IVP SCH ×2 (10:10→16:49)
[2022-03-10] MEDS: COREG TAB 3.125 MG PO SCH ×2 (10:10→20:39)
--- NOTE | 2022-03-10 10:56 | RAD ---
HISTORYSOBSTUDYCHEST x-ray, 1 VIEWCOMPARISONX-ray 03/09/2022FINDINGSThere is volume loss in the right nano thorax with likely moderate right pleural effusion. Small to moderate left pleural effusion is suspected. There is probable CHF. There may be mild layering pleural fluid in the right nano thorax but asymmetric pulmonary edema is not excluded. Cardiac device leads are unchanged in position.IMPRESSIONSlight increase in haziness in the right lung could be due to layering pleural fluid or asymmetric pulmonary edema. There is probable CHF.Electronically signed by: Javier Cole (Mar 10, 2022 10:54:55)
[2022-03-10] MEDS: DIFLUCAN PO SCH (15:14)
[2022-03-10] MEDS ORDERED: NS 1/2 1,000 ML IV 1,000 ML IV ONE (15:17)
[2022-03-10] MEDS: KLONOPIN TAB 0.5 MG PO SCH (20:39)
[2022-03-10] MEDS: REQUIP PO SCH (20:39)
[2022-03-10] MEDS: COUMADIN TAB 5 MG (JANTOVEN) PO SCH (20:39)
[2022-03-10] MEDS: ZOCOR TAB 20 MG PO SCH (20:39)
[2022-03-11 05:53] LABS: BASOPHILS # (AUTO) 0.1 X10^3/uL (0.0-0.1); BASOPHILS % (AUTO) 0.8 % (0.2-1.0); EOSINOPHILS # (AUTO) 0.2 x10^3/uL (0.0-0.2); HEMATOCRIT 38.5 % (42.0-54.0); HEMOGLOBIN 12.5 g/dL (13.5-18.0); LYMPHOCYTES # (AUTO) 0.7 X10^3/uL (1.3-2.9); LYMPHOCYTES % (AUTO) 11.9 % (21.0-51.0); MEAN CORPUSCULAR HEMOGLOBIN 28.9 pg (27.0-34.0); MEAN CORPUSCULAR HGB CONC 32.6 g/dL (33.0-35.0); MEAN CORPUSCULAR VOLUME 88.8 fL (80.0-100.0); MEAN PLATELET VOLUME 8.3 fL (7.4-11.0); MONOCYTES # (AUTO) 0.7 x10^3/uL (0.3-0.8); MONOCYTES % (AUTO) 10.4 % (0.0-13.0); NEUTROPHILS # (AUTO) 4.6 x10^3/uL (2.2-4.8); NEUTROPHILS % (AUTO) 73.9 % (42.0-75.0); RED BLOOD COUNT 4.34 X10^6/uL (4.7-6.0); RED CELL DISTRIBUTION WIDTH 16.3 % (11.6-16.5); WHITE BLOOD COUNT 6.3 X10^3/uL (3.6-10.0)
[2022-03-11] MEDS ORDERED: NS 1/2 1,000 ML IV 1,000 ML IV ONE (05:56)
[2022-03-11 06:09] LABS: ALANINE AMINOTRANSFERASE 24 Units/L (12-78); ALBUMIN 2.7 g/dL (3.4-5.0); ALKALINE PHOSPHATASE 146 Units/L (46-116); ASPARTATE AMINO TRANSFERASE 23 Units/L (15-37); BLOOD UREA NITROGEN 28 mg/dL (7-18); CALCIUM 8.2 mg/dL (8.5-10.1); CARBON DIOXIDE 31.1 mmol/L (21-32); CHLORIDE 101 mmol/L (98-107); COR CA(FOR HYPOALB) 9.2 mg/dL (8.5-10.1); CREATININE 1.34 mg/dL (0.70-1.30); SODIUM 137 mmol/L (136-145); TOTAL PROTEIN 6.8 g/dL (6.4-8.2); eGFR NON BLACK RACES 55 (>60)
[2022-03-11] MEDS: NS 1/2 1,000 ML IV 1,000 ML IV SCH ×2 (06:11→14:04)
--- NOTE | 2022-03-11 07:38 | RAD ---
HISTORYShortness of breathSTUDYChest AP [id number]/08/2022FINDINGSTher e is a pacemaker present on the left obscuring the left midlung. Patient is status post median sternotomy and CABG. The heart is enlarged. Mild pulmonary venous congestion is present. Haziness throughout the right lung is unchanged and likely represents infiltrates. Right pleural effusion is identified. Left lung is clear. Bony thorax is unremarkable.IMPRESSIONCardiomegaly with pulmonary venous congestionRight pleural effusionHaziness throughout the right lung may represent infiltrates and appears unchanged from prior examinations.Electronically signed by: KENYATTA GALDAMEZ (Mar 11, 2022 07:36:54)
[2022-03-11] MEDS: DUONEB 0.5 MG/3 MG (3 mL) NEB SCH ×4 (08:59→20:10)
[2022-03-11] MEDS: PULMICORT NEB TX 0.5 MG NEB SCH ×2 (08:59→20:10)
[2022-03-11] MEDS: LASIX IVP SCH ×2 (09:18→16:50)
[2022-03-11] MEDS: VSL#3 PO SCH (09:18)
[2022-03-11] MEDS: COREG TAB 3.125 MG PO SCH ×2 (09:19→20:53)
[2022-03-11] MEDS: ROBITUSSIN DM PO SCH ×4 (09:19→20:53)
[2022-03-11] MEDS: PriLOSEC PO SCH (09:19)
[2022-03-11] MEDS: DIFLUCAN PO SCH (09:19)
[2022-03-11] MEDS: FORTAZ or TAZICEF VIAL INJ 1 G in NS 100 ML IV 100 ML IV SCH ×2 (09:19→20:53)
[2022-03-11] MEDS: SYNTHROID 50 mcg TAB PO SCH (09:19)
[2022-03-11] MEDS: LEVAQUIN PREMIX IV 250 MG 250 MG/50 ML BAG IV SCH (09:21)
[2022-03-11] MEDS: LANOXIN or DIGITEK PO SCH (09:22)
--- NOTE | 2022-03-11 13:30 | PCM.PROG ---
Progress Note - Progress Note for Day of Date of Exam: 03/10/22 - Subjective Subjective: WAS ADMITTED FOR TREATMENT OF PNEUMONIA, CHF, AND GENERALIZED WEAKNESS. TODAY, HE IS ALERT AND ORIENTED, LYING IN BED ON MORNING ROUNDS. HE CONTINUES WITH COMPLAINTS OF SHORTNESS OF BREATH. HE DENIES CHEST PAIN THIS MORNING. ON EXAMINATION, HEART IS REGULAR IN RATE AND RHYTHM. BILATE RAL LUNGS NOTED WITH RALES THROUGHOUT. ABDOMEN IS ROUND, SOFT, AND NON-TENDER WITH NORMAL BOWEL SOUNDS NOTED IN ALL QUADRANTS. TRACE EDEMA NOTED TO LOWER EXTREMITIES. HIS VITALS THIS MORNING WERE: 98.9-75-20-94%-101/76. LABS WERE OBTAINED. WBC 6.6, RBC 4.22, HGB 12.3, HCT 37.7, PLT COUNT 153, INR 2.19, SODIUM 138, POTASSIUM 5.1, CARBON DIOXIDE 32.9, BUN 27, CREATININE 1.31, GLUCOSE 90, CALCIUM 8.2, TOTAL BILI 1.20, AST 20, ALT 19, ALK PHOS 134, BNP 1440, TOTAL PROTEIN 6.5, ALBUMIN 2.5. RESPIRATORY PANEL REVEALED GROWTH OF STREPTOCOCCUS PNEUMONIAE. BLOOD CULTURES ARE PENDING. A CHEST XRAY WAS OBTAINED AND REVEALED: Slight increase in haziness in the right lung could be due to layering pleural fluid or asymmetric pulmonary edema. There is probable CHF. HE IS CURRENTLY RECEIVING NORMAL SALINE AT 75 ML/HR, LEVAQUIN 250MG IV DAILY, FORTAZ 1G IV BID, DUONEBS QID, PULMICORT NEBS BID, TUSSIONEX 5ML PO Q12H PRN, ROBITUSSIN DM 10ML PO QID. HIS HOME MEDICATIONS OF KLONOPIN, DIGOXIN, SYNTHROID, PRILOSEC, REQUIP, ZOCOR, COUMADIN, AND COREG WERE RESUMED. TODAY, WE WILL ADD LASIX 20MG IV BID. OTHERWISE, WE WILL FOLLOW-UP WITH AM LABS AND CONTINUE TO MONITOR. TIME SPENT ON CLINICAL ASSESSMENT, REVIWING LABS AND IMAGING, DECISION MAKING, AND DOCUMENTATION GREATER THAN 45 MINUTES. - Past Medical Family Social History Past Med/Fam/Surg Hx: No changes since H&P Allergies: Allergies codeine Allergy (Verified 03/08/22 11:02) - Review of Systems ROS: No change since H&P - Vital Signs and I&O's Vital Signs: Temperature 98.8 F Pulse Rate [Left Brachial] 75 Pulse Rate [Right Brachial] 85 Pulse Rate 80 Respiratory Rate 20 Blood Pressure [Right Arm] 138/73 Blood Pressure [Left Arm] 123/63 Blood Pressure 100/58 O2 Sat by Pulse Oximetry 93 Intake and Output: Intake & Output 03/09/22 03/10/22 03/11/22 03/12/22 11:59 11:59 11:59 11:59 Intake Total 1602 / 1602 2103 / 2103 3621 / 3621 Output Total 1150 / 1150 500 / 500 2860 / 2860 Balance 452 / 452 1603 / 1603 761 / 761 - Physical Exam Oriented: Normal Eyes: Normal Ear: Normal Nose: Normal Throat: Normal Respiratory: Rales Cardiovascular: Normal : Normal Auscultation: Bowel Sounds: Normal Palpation: Normal Tenderness: Normal Skin: Normal Musculoskeletal: Normal Psychiatric: Normal Mood Description: Calm Affect: Normal Speech Pattern: Clear - Laboratory and Diagnostics Result Diagrams: 03/11/22 05:17 03/11/22 05:17 Labs: 03/08/22 14:45 Sputum - Expectorated Sputum Sputum Culture - Preliminary 03/08/22 14:45 Sputum - Expectorated Sputum - Final 03/08/22 10:55 Blood Blood Culture - Preliminary 03/08/22 10:52 Blood Blood Culture - Preliminary Laboratory WBC 6.3 X10^3/uL (3.6-10.0) 03/11/22 05:17 RBC 4.34 X10^6/uL (4.7-6.0) L 03/11/22 05:17 Hgb 12.5 g/dL (13.5-18.0) L 03/11/22 05:17 Hct 38.5 % (42.0-54.0) L 03/11/22 05:17 MCV 88.8 fL (80.0-100.0) 03/11/22 05:17 MCH 28.9 pg (27.0-34.0) 03/11/22 05:17 MCHC 32.6 g/dL (33.0-35.0) L 03/11/22 05:17 RDW 16.3 % (11.6-16.5) 03/11/22 05:17 Plt Count 175 X10^3/uL (150.0-450.0) 03/11/22 05:17 MPV 8.3 fL (7.4-11.0) 03/11/22 05:17 Neut % (Auto) 73.9 % (42.0-75.0) 03/11/22 05:17 Lymph % (Auto) 11.9 % (21.0-51.0) L 03/11/22 05:17 [place] % (Auto) 10.4 % (0.0-13.0) 03/11/22 05:17 Eos % (Auto) 3.0 % (0.9-2.9) H 03/11/22 05:17 Baso % (Auto) 0.8 % (0.2-1.0) 03/11/22 05:17 Neut # (Auto) 4.6 x10^3/uL (2.2-4.8) 03/11/22 05:17 Lymph # (Auto) 0.7 X10^3/uL (1.3-2.9) L 03/11/22 05:17 [place] # (Auto) 0.7 x10^3/uL (0.3-0.8) 03/11/22 05:17 Eos # (Auto) 0.2 x10^3/uL (0.0-0.2) 03/11/22 05:17 Baso # (Auto) 0.1 X10^3/uL (0.0-0.1) 03/11/22 05:17 Absolute Nucleated RBC 0.1 /100WBC 03/11/22 05:17 PT 23.5 SECONDS (11.8-14.3) 03/11/22 05:17 INR Target Range - 03/11/22 05:17 INR 2.20 (0.8-1.3) H 03/11/22 05:17 Sodium 137 mmol/L (136-145) 03/11/22 05:17 Corrected Sodium TNP 03/11/22 05:17 Potassium 4.6 mmol/L (3.5-5.1) 03/11/22 05:17 Chloride 101 mmol/L (98-107) 03/11/22 05:17 Carbon Dioxide 31.1 mmol/L (21-32) 03/11/22 05:17 BUN 28 mg/dL (7-18) H 03/11/22 05:17 Creatinine 1.34 mg/dL (0.70-1.30) H 03/11/22 05:17 Est GFR (MDRD) Af Amer > 60 (>60) 03/11/22 05:17 Est GFR (MDRD) Non-Af 55 (>60) L 03/11/22 05:17 Glucose 98 mg/dL (65-99) 03/11/22 05:17 Lactic Acid 1.9 mmol/L (0.4-2.0) 03/08/22 10:52 Calcium 8.2 mg/dL (8.5-10.1) L 03/11/22 05:17 Corrected Calcium 9.2 mg/dL (8.5-10.1) 03/11/22 05:17 Total Bilirubin 1.20 mg/dL (0.2-1.0) H 03/11/22 05:17 AST 23 Units/L (15-37) 03/11/22 05:17 ALT 24 Units/L (12-78) 03/11/22 05:17 Alkaline Phosphatase 146 Units/L (46-116) H 03/11/22 05:17 B-Natriuretic Peptide 2170 pg/mL (0-79) H* 03/11/22 05:17 Total Protein 6.8 g/dL (6.4-8.2) 03/11/22 05:17 Albumin 2.7 g/dL (3.4-5.0) L 03/11/22 05:17 Globulin 4.1 g/dL (2.5-4.5) 03/11/22 05:17 Albumin/Globulin Ratio 0.7 Ratio (1.1-2.1) L 03/11/22 05:17 Lipase 95 Units/L (73-393) 03/08/22 10:52 Digoxin 1.54 ng/mL (0.9-2) 03/08/22 10:52 SARS-CoV-2 (PCR) Negative (NEGATIVE) 03/08/22 10:44 Influenza Type A (PCR) Negative (NEGATIVE) 03/08/22 10:44 Influenza Type B (PCR) Negative (NEGATIVE) 03/08/22 10:44 RSV (PCR) Negative (NEGATIVE) 03/08/22 10:44 Resp Viral Panel (PCR) See scanned report 03/08/22 16:38 - Plan (1) Pneumonia Status: Acute Qualifiers: Pneumonia type: due to unspecified organism Laterality: unspecified laterality Lung location: unspecified part of lung Qualified Code(s): J18.9 - Pneumonia, unspecified organism Plan: NORMAL SALINE AT 75 ML/HR, LEVAQUIN 250MG IV DAILY, FORTAZ 1G IV BID, DUONEBS QID, PULMICORT NEBS BID, LASIX 20MG IV BID, TUSSIONEX 5ML PO Q12H PRN, ROBITUSSIN DM 10ML PO QID. HIS HOME MEDICATIONS OF KLONOPIN, DIGOXIN, SYNTHROID, PRILOSEC, REQUIP, ZOCOR, COUMADIN, AND COREG WERE RESUMED. (2) CHF (congestive heart failure) Status: Acute Qualifiers: Heart failure chronicity: acute on chronic (3) Generalized weakness Status: Acute
--- NOTE | 2022-03-11 13:33 | PCM.PROG ---
Progress Note - Progress Note for Day of Date of Exam: 03/11/22 - Subjective Subjective: WAS ADMITTED FOR TREATMENT OF PNEUMONIA, CHF, AND GENERALIZED WEAKNESS. TODAY, HE IS ALERT AND ORIENTED, LYING IN BED ON MORNING ROUNDS. HE CONTINUES WITH COMPLAINTS OF SHORTNESS OF BREATH. HE DENIES CHEST PAIN THIS MORNING. ON EXAMINATION, HEART IS REGULAR IN RATE AND RHYTHM. BILATE RAL LUNGS NOTED WITH RALES THROUGHOUT. ABDOMEN IS ROUND, SOFT, AND NON-TENDER WITH NORMAL BOWEL SOUNDS NOTED IN ALL QUADRANTS. TRACE EDEMA NOTED TO LOWER EXTREMITIES. HIS VITALS THIS MORNING WERE: 98.8-75-20-91%-138/73. LABS WERE OBTAINED. WBC 6.3, RBC 4.34, HGB 12.5, HCT 38.5, PLT COUNT 175, INR 2.20, SODIUM 137, POTASSIUM 4.6, CHLORIDE 101, BUN 28, CREATININE 1.34, GLUCOSE 98, CALCIUM 8.2, TOTAL BILI 1.20, ALK PHOS 146, BNP 2170, TOTAL PROTEIN 6.8, ALBUMIN 2.7. RESPIRATORY PANEL REVEALED GROWTH OF STREPTOCOCCUS PNEUMONIAE. BLOOD CULTURES ARE PENDING. A CHEST XRAY WAS OBTAINED AND REVEALED: Cardiomegaly with pulmonary venous congestion. Right pleural effusion. Haziness throughout the right lung may represent infiltrates and appears unchanged from prior examinations. HE IS CURRENTLY RECEIVING NORMAL SALINE AT 75 ML/HR, LEVAQUIN 250MG IV DAILY, FORTAZ 1G IV BID, DUONEBS QID, PULMICORT NEBS BID, TUSSIONEX 5ML PO Q12H PRN, ROBITUSSIN DM 10ML PO QID, LASIX 20MG IV BID. HIS HOME MEDICATIONS OF KLONOPIN, DIGOXIN, SYNTHROID, PRILOSEC, REQUIP, ZOCOR, COUMADIN, AND COREG WERE RESUMED. TODAY, WE WILL INCREASE LASIX TO 40MG IV BID. OTHERWISE, WE WILL FOLLOW-UP WITH AM LABS AND CONTINUE TO MONITOR. TIME SPENT ON CLINICAL ASSESSMENT, REVIWING LABS AND IMAGING, DECISION MAKING, AND DOCUMENTATION GREATER THAN 45 MINUTES. - Past Medical Family Social History Past Med/Fam/Surg Hx: No changes since H&P Allergies: Allergies codeine Allergy (Verified 03/08/22 11:02) - Review of Systems ROS: No change since H&P - Vital Signs and I&O's Vital Signs: Temperature 98.8 F Pulse Rate [Left Brachial] 75 Pulse Rate [Right Brachial] 85 Pulse Rate 80 Respiratory Rate 20 Blood Pressure [Right Arm] 138/73 Blood Pressure [Left Arm] 123/63 Blood Pressure 100/58 O2 Sat by Pulse Oximetry 93 Intake and Output: Intake & Output 03/09/22 03/10/22 03/11/22 03/12/22 11:59 11:59 11:59 11:59 Intake Total 1602 / 1602 2103 / 2103 3621 / 3621 Output Total 1150 / 1150 500 / 500 2860 / 2860 Balance 452 / 452 1603 / 1603 761 / 761 - Physical Exam Oriented: Normal Eyes: Normal Ear: Normal Nose: Normal Throat: Normal Respiratory: Rales Cardiovascular: Normal : Normal Auscultation: Bowel Sounds: Normal Palpation: Normal Tenderness: Normal Skin: Normal Musculoskeletal: Normal Psychiatric: Normal Mood Description: Calm Affect: Normal Speech Pattern: Clear - Laboratory and Diagnostics Result Diagrams: 03/11/22 05:17 03/11/22 05:17 Labs: 03/08/22 14:45 Sputum - Expectorated Sputum Sputum Culture - Preliminary 03/08/22 14:45 Sputum - Expectorated Sputum - Final 03/08/22 10:55 Blood Blood Culture - Preliminary 03/08/22 10:52 Blood Blood Culture - Preliminary Laboratory WBC 6.3 X10^3/uL (3.6-10.0) 03/11/22 05:17 RBC 4.34 X10^6/uL (4.7-6.0) L 03/11/22 05:17 Hgb 12.5 g/dL (13.5-18.0) L 03/11/22 05:17 Hct 38.5 % (42.0-54.0) L 03/11/22 05:17 MCV 88.8 fL (80.0-100.0) 03/11/22 05:17 MCH 28.9 pg (27.0-34.0) 03/11/22 05:17 MCHC 32.6 g/dL (33.0-35.0) L 03/11/22 05:17 RDW 16.3 % (11.6-16.5) 03/11/22 05:17 Plt Count 175 X10^3/uL (150.0-450.0) 03/11/22 05:17 MPV 8.3 fL (7.4-11.0) 03/11/22 05:17 Neut % (Auto) 73.9 % (42.0-75.0) 03/11/22 05:17 Lymph % (Auto) 11.9 % (21.0-51.0) L 03/11/22 05:17 [place] % (Auto) 10.4 % (0.0-13.0) 03/11/22 05:17 Eos % (Auto) 3.0 % (0.9-2.9) H 03/11/22 05:17 Baso % (Auto) 0.8 % (0.2-1.0) 03/11/22 05:17 Neut # (Auto) 4.6 x10^3/uL (2.2-4.8) 03/11/22 05:17 Lymph # (Auto) 0.7 X10^3/uL (1.3-2.9) L 03/11/22 05:17 [place] # (Auto) 0.7 x10^3/uL (0.3-0.8) 03/11/22 05:17 Eos # (Auto) 0.2 x10^3/uL (0.0-0.2) 03/11/22 05:17 Baso # (Auto) 0.1 X10^3/uL (0.0-0.1) 03/11/22 05:17 Absolute Nucleated RBC 0.1 /100WBC 03/11/22 05:17 PT 23.5 SECONDS (11.8-14.3) 03/11/22 05:17 INR Target Range - 03/11/22 05:17 INR 2.20 (0.8-1.3) H 03/11/22 05:17 Sodium 137 mmol/L (136-145) 03/11/22 05:17 Corrected Sodium TNP 03/11/22 05:17 Potassium 4.6 mmol/L (3.5-5.1) 03/11/22 05:17 Chloride 101 mmol/L (98-107) 03/11/22 05:17 Carbon Dioxide 31.1 mmol/L (21-32) 03/11/22 05:17 BUN 28 mg/dL (7-18) H 03/11/22 05:17 Creatinine 1.34 mg/dL (0.70-1.30) H 03/11/22 05:17 Est GFR (MDRD) Af Amer > 60 (>60) 03/11/22 05:17 Est GFR (MDRD) Non-Af 55 (>60) L 03/11/22 05:17 Glucose 98 mg/dL (65-99) 03/11/22 05:17 Lactic Acid 1.9 mmol/L (0.4-2.0) 03/08/22 10:52 Calcium 8.2 mg/dL (8.5-10.1) L 03/11/22 05:17 Corrected Calcium 9.2 mg/dL (8.5-10.1) 03/11/22 05:17 Total Bilirubin 1.20 mg/dL (0.2-1.0) H 03/11/22 05:17 AST 23 Units/L (15-37) 03/11/22 05:17 ALT 24 Units/L (12-78) 03/11/22 05:17 Alkaline Phosphatase 146 Units/L (46-116) H 03/11/22 05:17 B-Natriuretic Peptide 2170 pg/mL (0-79) H* 03/11/22 05:17 Total Protein 6.8 g/dL (6.4-8.2) 03/11/22 05:17 Albumin 2.7 g/dL (3.4-5.0) L 03/11/22 05:17 Globulin 4.1 g/dL (2.5-4.5) 03/11/22 05:17 Albumin/Globulin Ratio 0.7 Ratio (1.1-2.1) L 03/11/22 05:17 Lipase 95 Units/L (73-393) 03/08/22 10:52 Digoxin 1.54 ng/mL (0.9-2) 03/08/22 10:52 SARS-CoV-2 (PCR) Negative (NEGATIVE) 03/08/22 10:44 Influenza Type A (PCR) Negative (NEGATIVE) 03/08/22 10:44 Influenza Type B (PCR) Negative (NEGATIVE) 03/08/22 10:44 RSV (PCR) Negative (NEGATIVE) 03/08/22 10:44 Resp Viral Panel (PCR) See scanned report 03/08/22 16:38 - Plan (1) Pneumonia Status: Acute Qualifiers: Pneumonia type: due to unspecified organism Laterality: unspecified laterality Lung location: unspecified part of lung Qualified Code(s): J18.9 - Pneumonia, unspecified organism Plan: NORMAL SALINE AT 75 ML/HR, LEVAQUIN 250MG IV DAILY, FORTAZ 1G IV BID, DUONEBS QID, PULMICORT NEBS BID, LASIX 40MG IV BID, TUSSIONEX 5ML PO Q12H PRN, ROBITUSSIN DM 10ML PO QID. HIS HOME MEDICATIONS OF KLONOPIN, DIGOXIN, SYNTHROID, PRILOSEC, REQUIP, ZOCOR, COUMADIN, AND COREG WERE RESUMED. (2) CHF (congestive heart failure) Status: Acute Qualifiers: Heart failure chronicity: acute on chronic (3) Generalized weakness Status: Acute
[2022-03-11] MEDS: REQUIP PO SCH (20:52)
[2022-03-11] MEDS: KLONOPIN TAB 0.5 MG PO SCH (20:53)
[2022-03-11] MEDS: ZOCOR TAB 20 MG PO SCH (20:53)
[2022-03-11] MEDS: COUMADIN TAB 5 MG (JANTOVEN) PO SCH (21:06)
[2022-03-12] MEDS: NS 1/2 1,000 ML IV 1,000 ML IV SCH ×2 (01:05→16:09)
[2022-03-12 05:08] LABS: BASOPHILS # (AUTO) 0.1 X10^3/uL (0.0-0.1); BASOPHILS % (AUTO) 2.3 % (0.2-1.0); EOSINOPHILS # (AUTO) 0.2 x10^3/uL (0.0-0.2); EOSINOPHILS % (AUTO) 3.5 % (0.9-2.9); HEMATOCRIT 38.1 % (42.0-54.0); HEMOGLOBIN 12.6 g/dL (13.5-18.0); LYMPHOCYTES # (AUTO) 0.3 X10^3/uL (1.3-2.9); LYMPHOCYTES % (AUTO) 4.9 % (21.0-51.0); MEAN CORPUSCULAR HEMOGLOBIN 29.2 pg (27.0-34.0); MEAN CORPUSCULAR HGB CONC 33.1 g/dL (33.0-35.0); MEAN CORPUSCULAR VOLUME 88.2 fL (80.0-100.0); MEAN PLATELET VOLUME 8.4 fL (7.4-11.0); MONOCYTES # (AUTO) 0.3 x10^3/uL (0.3-0.8); MONOCYTES % (AUTO) 5.3 % (0.0-13.0); NEUTROPHILS # (AUTO) 5.3 x10^3/uL (2.2-4.8); RED BLOOD COUNT 4.32 X10^6/uL (4.7-6.0); RED CELL DISTRIBUTION WIDTH 16.1 % (11.6-16.5); WHITE BLOOD COUNT 6.3 X10^3/uL (3.6-10.0)
[2022-03-12 05:22] LABS: INR 2.12 (0.8-1.3)
[2022-03-12 05:24] LABS: ALANINE AMINOTRANSFERASE 25 Units/L (12-78); ALBUMIN 2.8 g/dL (3.4-5.0); ALKALINE PHOSPHATASE 157 Units/L (46-116); ASPARTATE AMINO TRANSFERASE 29 Units/L (15-37); BLOOD UREA NITROGEN 32 mg/dL (7-18); CALCIUM 8.5 mg/dL (8.5-10.1); CHLORIDE 98 mmol/L (98-107); COR CA(FOR HYPOALB) 9.5 mg/dL (8.5-10.1); CREATININE 1.51 mg/dL (0.70-1.30); SODIUM 135 mmol/L (136-145); eGFR NON BLACK RACES 48 (>60)
[2022-03-12] MEDS: COREG TAB 3.125 MG PO SCH ×2 (08:16→20:49)
[2022-03-12] MEDS: DIFLUCAN PO SCH (08:16)
[2022-03-12] MEDS: ROBITUSSIN DM PO SCH ×4 (08:16→20:50)
[2022-03-12] MEDS: LASIX IVP SCH ×2 (08:17→16:42)
[2022-03-12] MEDS: LANOXIN or DIGITEK PO SCH (08:17)
[2022-03-12] MEDS: SYNTHROID 50 mcg TAB PO SCH (08:17)
[2022-03-12] MEDS: VSL#3 PO SCH (08:17)
[2022-03-12] MEDS: FORTAZ or TAZICEF VIAL INJ 1 G in NS 100 ML IV 100 ML IV SCH ×2 (08:17→20:50)
[2022-03-12] MEDS: PriLOSEC PO SCH (08:17)
[2022-03-12] MEDS: DUONEB 0.5 MG/3 MG (3 mL) NEB SCH ×4 (08:50→20:05)
[2022-03-12] MEDS: PULMICORT NEB TX 0.5 MG NEB SCH ×2 (08:50→20:05)
[2022-03-12] MEDS: LEVAQUIN PREMIX IV 250 MG 250 MG/50 ML BAG IV SCH (09:53)
[2022-03-12] MEDS: ENTRESTO 24/26 MG TAB PO SCH ×2 (10:18→20:49)
--- NOTE | 2022-03-12 19:42 | RAD ---
HISTORYShortness of breathSTUDYChest AP [id number]/09/2022FINDINGSTher e is a pacemaker present on the left obscuring a portion of the left upper lobe. Patient is status post median sternotomy and CABG. Heart remains enlarged. Mild pulmonary venous congestion is present and unchanged. Right lung infiltrates are unchanged. Left lung remains clear. Small right pleural effusion is present. Bony thorax is unremarkable.IMPRESSIONNo significant change from the prior examinationElectronically signed by: KENYATTA GALDAMEZ (Mar 12, 2022 19:41:03)
[2022-03-12] MEDS: KLONOPIN TAB 0.5 MG PO SCH (20:49)
[2022-03-12] MEDS: ZOCOR TAB 20 MG PO SCH (20:49)
[2022-03-12] MEDS: REQUIP PO SCH (20:49)
[2022-03-12] MEDS: COUMADIN TAB 5 MG (JANTOVEN) PO SCH (20:50)
[2022-03-13 05:08] LABS: BASOPHILS # (AUTO) 0.1 X10^3/uL (0.0-0.1); BASOPHILS % (AUTO) 1.1 % (0.2-1.0); EOSINOPHILS # (AUTO) 0.2 x10^3/uL (0.0-0.2); EOSINOPHILS % (AUTO) 2.4 % (0.9-2.9); HEMOGLOBIN 12.4 g/dL (13.5-18.0); LYMPHOCYTES # (AUTO) 0.8 X10^3/uL (1.3-2.9); LYMPHOCYTES % (AUTO) 11.4 % (21.0-51.0); MEAN CORPUSCULAR HEMOGLOBIN 29.3 pg (27.0-34.0); MEAN CORPUSCULAR HGB CONC 33.5 g/dL (33.0-35.0); MEAN CORPUSCULAR VOLUME 87.6 fL (80.0-100.0); MEAN PLATELET VOLUME 8.1 fL (7.4-11.0); MONOCYTES # (AUTO) 0.7 x10^3/uL (0.3-0.8); MONOCYTES % (AUTO) 10.5 % (0.0-13.0); NEUTROPHILS # (AUTO) 5.3 x10^3/uL (2.2-4.8); NEUTROPHILS % (AUTO) 74.6 % (42.0-75.0); RED BLOOD COUNT 4.22 X10^6/uL (4.7-6.0); RED CELL DISTRIBUTION WIDTH 16.2 % (11.6-16.5); WHITE BLOOD COUNT 7.1 X10^3/uL (3.6-10.0)
[2022-03-13 05:14] LABS: INR 2.26 (0.8-1.3)
[2022-03-13 05:23] LABS: ALANINE AMINOTRANSFERASE 25 Units/L (12-78); ALBUMIN 2.6 g/dL (3.4-5.0); ALKALINE PHOSPHATASE 158 Units/L (46-116); ASPARTATE AMINO TRANSFERASE 31 Units/L (15-37); BLOOD UREA NITROGEN 36 mg/dL (7-18); CALCIUM 8.4 mg/dL (8.5-10.1); CARBON DIOXIDE 30.7 mmol/L (21-32); CHLORIDE 97 mmol/L (98-107); COR CA(FOR HYPOALB) 9.5 mg/dL (8.5-10.1); CREATININE 1.53 mg/dL (0.70-1.30); SODIUM 133 mmol/L (136-145); TOTAL PROTEIN 6.7 g/dL (6.4-8.2); eGFR NON BLACK RACES 47 (>60)
[2022-03-13] MEDS: NS 1/2 1,000 ML IV 1,000 ML IV SCH (07:27)
[2022-03-13] MEDS: DUONEB 0.5 MG/3 MG (3 mL) NEB SCH (08:05)
[2022-03-13] MEDS: PULMICORT NEB TX 0.5 MG NEB SCH (08:05)
[2022-03-13 08:08] VITALS: BP 115/74
[2022-03-13] MEDS: LASIX IVP SCH (08:33)
[2022-03-13] MEDS: ROBITUSSIN DM PO SCH (08:33)
[2022-03-13] MEDS: FORTAZ or TAZICEF VIAL INJ 1 G in NS 100 ML IV 100 ML IV SCH (08:33)
[2022-03-13] MEDS: SYNTHROID 50 mcg TAB PO SCH (08:33)
[2022-03-13] MEDS: LEVAQUIN PREMIX IV 250 MG 250 MG/50 ML BAG IV SCH (08:33)
[2022-03-13] MEDS: ENTRESTO 24/26 MG TAB PO SCH (08:34)
[2022-03-13] MEDS: VSL#3 PO SCH (08:34)
[2022-03-13] MEDS: COREG TAB 3.125 MG PO SCH (08:34)
[2022-03-13] MEDS: PriLOSEC PO SCH (08:34)
[2022-03-13] MEDS: DIFLUCAN PO SCH (08:34)
[2022-03-13] MEDS: LANOXIN or DIGITEK PO SCH (08:34)
--- NOTE | 2022-03-13 22:45 | RAD ---
HISTORYSOBSTUDYCHEST, PA/LAT ADULTCOMPARISONDecember 2021TECHNIQUEPA and lateral projections, 2 imagesFINDINGSMild cardiomegaly.Status post median sternotomy/CABG.Pacemaker in place.Pulmonary vascular sizes are normal.Blunting of the right costophrenic angle.Diffuse increased interstitial markings.No focal airspace disease.No pneumothorax.No acute osseous abnormalityIMPRESSIONFindings could represent mild acute cardiogenic edema and/or chronic interstitial changes. Blunting of the right costophrenic angle could represent a small effusion. Overall, no significant changes.Electronically signed by: Gavin Sequeira (Mar 13, 2022 22:43:25)
== END 2022-03-13 10:57 | disposition home or self-care (01) | DRG 194 ==
LOC: MERGE 09:34 → ER 09:34 → MED/SURG 09:34 → OBSVTOIN 13:10 → MED/SURG 13:40
PROVIDERS: ADMIT Internal Medicine; ATTEND Internal Medicine
DX: I95.89 Other hypotension; K21.9 Gastro-esophageal reflux disease without esophagitis; J90 Pleural effusion, not elsewhere classified; R07.89 Other chest pain; I50.9 Heart failure, unspecified; I48.91 Unspecified atrial fibrillation; I25.10 Atherosclerotic heart disease of native coronary artery without angina pectoris; R06.02 Shortness of breath; E78.2 Mixed hyperlipidemia; Z20.822 Contact with and (suspected) exposure to COVID-19; R53.1 Weakness; R51.9 Headache, unspecified; R79.1 Abnormal coagulation profile; B37.9 Candidiasis, unspecified; J13 Pneumonia due to Streptococcus pneumoniae; E03.8 Other specified hypothyroidism

== ENCOUNTER 2023-01-09 18:18 | Inpatient (IN) ==
[2023-01-09 18:46] VITALS: BMI 20.7
--- NOTE | 2023-01-09 19:03 | EKG ---
Test Reason : Shortness of Breath Blood Pressure : */* mmHG Vent. Rate : 70 BPM Atrial Rate : 36 BPM P-R Int : * ms QRS Dur : 186 ms QT Int : 442 ms P-R-T Axes : * 101 113 degrees QTc Int : 477 ms Ventricular-paced rhythm Abnormal ECG No previous ECGs available Confirmed by Nando Shearer ([id number]) on 01/11/2023 7:57:31 AM Referred By: Confirmed By: Nando Shearer
[2023-01-09 19:07] LABS: BASOPHILS # (AUTO) 0.1 X10^3/uL (0.0-0.1); EOSINOPHILS # (AUTO) 0.7 x10^3/uL (0.0-0.2); HEMOGLOBIN 12.5 g/dL (13.5-18.0); LYMPHOCYTES # (AUTO) 0.6 X10^3/uL (1.3-2.9); MEAN PLATELET VOLUME 7.7 fL (7.4-11.0); NEUTROPHILS % (AUTO) 65.6 % (42.0-75.0); RED CELL DISTRIBUTION WIDTH 18.4 % (11.6-16.5)
[2023-01-09 19:11] LABS: BASOPHILS % (AUTO) 1.1 % (0.2-1.0); EOSINOPHILS % (AUTO) 12.3 % (0.9-2.9); HEMATOCRIT 40.7 % (42.0-54.0); LYMPHOCYTES % (AUTO) 10.5 % (21.0-51.0); MEAN CORPUSCULAR HEMOGLOBIN 26.4 pg (27.0-34.0); MEAN CORPUSCULAR HGB CONC 30.6 g/dL (33.0-35.0); MEAN CORPUSCULAR VOLUME 86.2 fL (80.0-100.0); MONOCYTES # (AUTO) 0.6 x10^3/uL (0.3-0.8); MONOCYTES % (AUTO) 10.5 % (0.0-13.0); PLATELET COUNT 182 X10^3/uL (150.0-450.0); RED BLOOD COUNT 4.73 X10^6/uL (4.7-6.0); WHITE BLOOD COUNT 6.1 X10^3/uL (3.6-10.0)
[2023-01-09 19:15] LABS: INR 2.15 (0.8-1.3)
--- NOTE | 2023-01-09 19:16 | DR.SOBA ---
HPI Time Seen Time Seen by Provider: 01/09/23 19:15 Primary Care Physician Primary Care Physician: Breezy Complaints Chief Complaint:: Patient come in via [facility]. Patient stated that he was having issues with his blood pressure at home. COVID-19 Coronavirus risk:travel/contact w/high risk person: No Has patient experienced Coronavirus symptoms: No Source History Provided: Patient Mode of Arrival Mode of Arrival: EMS Timing Onset of Chief Complaint: 01/09/23 PMH PMH Past Medical History: Yes Past Medical History: CHF, Hypertension and GA Past Surgical History: Yes Surgical History: CABG/Valve Surgery and Ortho Surgery Family History History of Family Medical Conditions: Yes Family Medical History: Diabetes Mellitus, GA and Hypertension Social History Does patient currently use any type of tobacco product: No Have you used tobacco products in the last 12 months: No Type of Tobacco Use: None Does any household member use tobacco: No Alcohol Use: None Do you use any recreational Drugs:: No Lives With: Spouse Lives Where: Home Travel Risk Coronavirus risk:travel/contact w/high risk person: No Has patient experienced Coronavirus symptoms: No Infectious screening In the last 2 months have you had wt loss of >10#?: NO Have you had fever, night sweats or hemotysis?: No Have you traveled outside the country in the last 6 months?: No Isolation: Standard PE Vital Signs Vitals: Vital Signs Temperature 97.7 F Pulse Rate 69 Pulse Rate 69 Pulse Rate 69 Pulse Rate 69 Pulse Rate 69 Pulse Rate 69 Pulse Rate 69 Pulse Rate 69 Pulse Rate 70 Pulse Rate 69 Pulse Rate 69 Respiratory Rate 28 Respiratory Rate 22 Respiratory Rate 18 Blood Pressure 96/52 Blood Pressure 95/53 Blood Pressure 90/50 Blood Pressure 92/55 Blood Pressure 103/57 Blood Pressure 103/57 O2 Sat by Pulse Oximetry 98 O2 Sat by Pulse Oximetry 97 O2 Sat by Pulse Oximetry 99 O2 Sat by Pulse Oximetry 99 O2 Sat by Pulse Oximetry 97 O2 Sat by Pulse Oximetry 98 O2 Sat by Pulse Oximetry 97 O2 Sat by Pulse Oximetry 98 O2 Sat by Pulse Oximetry 98 O2 Sat by Pulse Oximetry 97 O2 Sat by Pulse Oximetry 98 ROR Labs Reviewed 01/09/23 19:00 01/09/23 19:00 Laboratory: WBC 6.1 X10^3/uL (3.6-10.0) 01/09/23 19:00 RBC 4.73 X10^6/uL (4.7-6.0) 01/09/23 19:00 Hgb 12.5 g/dL (13.5-18.0) L 01/09/23 19:00 Hct 40.7 % (42.0-54.0) L 01/09/23 19:00 MCV 86.2 fL (80.0-100.0) 01/09/23 19:00 MCH 26.4 pg (27.0-34.0) L 01/09/23 19:00 MCHC 30.6 g/dL (33.0-35.0) L 01/09/23 19:00 RDW 18.4 % (11.6-16.5) H 01/09/23 19:00 Plt Count 182 X10^3/uL (150.0-450.0) 01/09/23 19:00 MPV 7.7 fL (7.4-11.0) 01/09/23 19:00 Neut % (Auto) 65.6 % (42.0-75.0) 01/09/23 19:00 Lymph % (Auto) 10.5 % (21.0-51.0) L 01/09/23 19:00 [place] % (Auto) 10.5 % (0.0-13.0) 01/09/23 19:00 Eos % (Auto) 12.3 % (0.9-2.9) H 01/09/23 19:00 Baso % (Auto) 1.1 % (0.2-1.0) H 01/09/23 19:00 Neut # (Auto) 4.0 x10^3/uL (2.2-4.8) 01/09/23 19:00 Lymph # (Auto) 0.6 X10^3/uL (1.3-2.9) L 01/09/23 19:00 [place] # (Auto) 0.6 x10^3/uL (0.3-0.8) 01/09/23 19:00 Eos # (Auto) 0.7 x10^3/uL (0.0-0.2) H 01/09/23 19:00 Baso # (Auto) 0.1 X10^3/uL (0.0-0.1) 01/09/23 19:00 Absolute Nucleated RBC 0.1 /100WBC 01/09/23 19:00 PT 23.6 SECONDS (11.8-14.3) 01/09/23 19:00 INR Target Range - 01/09/23 19:00 INR 2.15 (0.8-1.3) H 01/09/23 19:00 APTT 42.6 SECONDS (22.9-36.5) H 01/09/23 19:00 PTT Comment - 01/09/23 19:00 Sodium 141 mmol/L (136-145) 01/09/23 19:00 Corrected Sodium 141 mmol/L (136-145) 01/09/23 19:00 Potassium 5.0 mmol/L (3.5-5.1) 01/09/23 19:00 Chloride 103 mmol/L (98-107) 01/09/23 19:00 Carbon Dioxide 39.0 mmol/L (21-32) H 01/09/23 19:00 BUN 44 mg/dL (7-18) H 01/09/23 19:00 Creatinine 1.33 mg/dL (0.70-1.30) H 01/09/23 19:00 Est GFR (MDRD) Af Amer > 60 (>60) 01/09/23 19:00 Est GFR (MDRD) Non-Af 55 (>60) L 01/09/23 19:00 Glucose 114 mg/dL (65-99) H 01/09/23 19:00 Calcium 8.2 mg/dL (8.5-10.1) L 01/09/23 19:00 Corrected Calcium 9.3 mg/dL (8.5-10.1) 01/09/23 19:00 Total Bilirubin 1.40 mg/dL (0.2-1.0) H 01/09/23 19:00 AST 20 Units/L (15-37) 01/09/23 19:00 ALT 17 Units/L (12-78) 01/09/23 19:00 Alkaline Phosphatase 260 Units/L (46-116) H 01/09/23 19:00 Creatine Kinase 48 Units/L (39-308) 01/09/23 19:00 Troponin I High Sens 38.2 ng/L (4.0-60.0) 01/09/23 19:00 B-Natriuretic Peptide 1830 pg/mL (0-79) H* 01/09/23 19:00 Total Protein 7.0 g/dL (6.4-8.2) 01/09/23 19:00 Albumin 2.6 g/dL (3.4-5.0) L 01/09/23 19:00 Globulin 4.4 g/dL (2.5-4.5) 01/09/23 19:00 Albumin/Globulin Ratio 0.6 Ratio (1.1-2.1) L 01/09/23 19:00 Specimen Type Clean catch urine 01/09/23 19:53 Urine Color Dark yellow (YELLOW) 01/09/23 19:53 Urine Appearance Clear (CLEAR) 01/09/23 19:53 Urine pH 6.0 (5.0 - 8.0) 01/09/23 19:53 Ur Specific [place] 1.020 (1.000-1.030) 01/09/23 19:53 Urine Protein 1+ (NEGATIVE) 01/09/23 19:53 Urine Glucose (UA) Negative (NEGATIVE) 01/09/23 19:53 Urine Ketones Negative (NEGATIVE) 01/09/23 19:53 Urine Blood Negative (NEGATIVE) 01/09/23 19:53 Urine Nitrite Negative (NEGATIVE) 01/09/23 19:53 Urine Bilirubin Negative (NEGATIVE) 01/09/23 19:53 Urine Urobilinogen 2+ (NORMAL) 01/09/23 19:53 Ur Leukocyte Esterase Negative (NEGATIVE) 01/09/23 19:53 Urine RBC 0-2 /HPF (0-3) 01/09/23 19:53 Urine WBC 0-2 /HPF (0-5) 01/09/23 19:53 Ur Squamous Epith Cells Few /HPF (NEGATIVE) 01/09/23 19:53 Urine Bacteria Negative /HPF (NEGATIVE) 01/09/23 19:53 Hyaline Casts Few /LPF (NEGATIVE) 01/09/23 19:53 Ur Culture Indicated? No/not indicated 01/09/23 19:53 Opioid Opioid Risk Tool Age (Carlin box if 16-45): No History of Preadolescent Sexual Abuse: No Total: 0 Total Score Risk Category: Low Risk Copyright: Mohan GREEN predicting aberrant behaviors Discharge Plan Discharge Plan Patient Disposition: 01 HOME, SELF-CARE Condition: Stable Prescriptions: No Action levothyroxine 50 MCG tablet 50 mcg PO DAILY warfarin 5 MG tablet 5 mg PO DAILY omeprazole 20 MG capsule,delayed release(DR/EC) 20 mg PO DAILY simvastatin 20 mg tablet 20 mg PO HS clonazepam 0.5 mg tablet 0.5 mg PO HS carvedilol 3.125 mg tablet 3.125 mg PO BID digoxin [Digitek] 125 mcg (0.125 mg) Tablet 0.125 mg PO DAILY Qty: 30 3RF Rx Instructions: TAKE ONE TABLET DAILY furosemide 40 mg tablet 40 mg PO BID PRNQty: 60 3RF Rx Instructions: TAKE ONE TABLET TWICE A DAY NEEDED FOR SWELLING. Entresto 24-26 mg tablet 0.5 tab PO BID Qty: 30 3RF Rx Instructions: TAKE ONE HALF OF A TABLET TWICE A DAY ropinirole 1 mg Tablet 1 mg PO QHS Qty: 30 3RF Rx Instructions: administer 1-3 hours before bedtime temazepam 30 mg Capsule 30 mg PO QHS PRN testosterone cypionate 200 mg/mL oil 1 ea subcut WEEKLY Entresto 24-26 mg Tablet 1 tab PO BID Qty: 60 4RF carvedilol [Coreg] 6.25 mg tablet 6.25 mg PO BID Qty: 60 4RF Rx Instructions: must administer with a meal/food levofloxacin 500 mg tablet 500 mg PO Q24H Qty: 5 0RF tamsulosin 0.4 mg capsule 0.4 mg PO QDAY Health Concerns: Post Hospitalization: new medications and changes needed to prevent readmission or further decline. Pt educated and given instructions on all concerns. Plan of Treatment: Continue with present treatment and follow up plan. Pt is to keep follow up appointment as instructed and take medications as ordered. Orders to Discharge Patient Discharge Orders: Transfer (Routine); Ordered 01/09/23 Ordered By: REINA CABRAL Follow ups/Referrals Follow ups/Referrals: Artemio Tijerina [Primary Care Provider] - 3 days Instructions Stand Alone Forms: Post Hospital Follow Up Care
[2023-01-09 19:22] LABS: ALANINE AMINOTRANSFERASE 17 Units/L (12-78); ALBUMIN 2.6 g/dL (3.4-5.0); ALKALINE PHOSPHATASE 260 Units/L (46-116); ASPARTATE AMINO TRANSFERASE 20 Units/L (15-37); BLOOD UREA NITROGEN 44 mg/dL (7-18); CALCIUM 8.2 mg/dL (8.5-10.1); CHLORIDE 103 mmol/L (98-107); COR CA(FOR HYPOALB) 9.3 mg/dL (8.5-10.1); COR NA(FOR HYPERGLY) 141 mmol/L (136-145); CREATINE KINASE 48 Units/L (39-308); CREATININE 1.33 mg/dL (0.70-1.30); GLUCOSE 114 mg/dL (65-99); SODIUM 141 mmol/L (136-145); eGFR NON BLACK RACES 55 (>60)
[2023-01-09] MEDS ORDERED: LASIX IVP ONE ×2 (19:40→19:41)
[2023-01-09 20:12] LABS: BILIRUBIN,URINE NEGATIVE (NEGATIVE); BLOOD/HEMOGLOBIN,URINE NEGATIVE (NEGATIVE); GLUCOSE, URINE NEGATIVE (NEGATIVE); KETONES,URINE NEGATIVE (NEGATIVE); LEUKOCYTE ESTERASE ,URINE NEGATIVE (NEGATIVE); NITRITES,URINE NEGATIVE (NEGATIVE); PROTEIN,URINE 1+ (NEGATIVE); UROBILINOGEN,URINE 2+ (NORMAL)
[2023-01-09 20:16] LABS: APPEARANCE,URINE CLEAR (CLEAR); COLOR,URINE DARK YELLOW (YELLOW)
[2023-01-09 20:27] LABS: RBC,URINE 0-2 /HPF (0-3); SQUAMOUS EPITHELIAL CELL,UR FEW /HPF (NEGATIVE)
[2023-01-09 20:28] LABS: BACTERIA,URINE NEGATIVE /HPF (NEGATIVE); HYALINE CASTS, URINE FEW /LPF (NEGATIVE)
--- NOTE | 2023-01-10 01:40 | RAD ---
EXAM:FRONTAL VIEW CHEST X-RAYHISTORY:Abnormal cardiac labsCOMPARISON:March 13, 2022FINDINGS:There is diffuse increased interstitial lung markings throughout the right and left lung. This is worrisome for pulmonary edema.There is a focus of airspace disease in the right lower lung zone.Implantable cardiac device is again seen without evidence of lead wire fractures with postoperative changes from midline sternotomy.The heart size is enlarged but stable from prior examination.The mediastinum is unremarkable.No gross pneumothorax is seen. There is a small right pleural effusion which is unchanged from prior examination.Tracheal deviation is again seen similar to prior examination.IMPRESSION:1. Enlarged heart is seen with findings worrisome for pulmonary edema worsened from prior exam. Stable small right pleural effusion is seen.THIS IS AN ELECTRONICALLY VERIFIED FINAL [id number]/10/2023 1:19 AM - Electronically signed by Deep Rodriguez MD
[2023-01-10] MEDS ORDERED: DUONEB 0.5 MG/3 MG (3 mL) NEB ONE (04:02)
[2023-01-10 06:21] LABS: HEMOGLOBIN 12.2 g/dL (13.5-18.0)
[2023-01-10 06:27] LABS: BASOPHILS # (AUTO) 0.1 X10^3/uL (0.0-0.1); BASOPHILS % (AUTO) 1.2 % (0.2-1.0); EOSINOPHILS # (AUTO) 0.7 x10^3/uL (0.0-0.2); EOSINOPHILS % (AUTO) 11.2 % (0.9-2.9); HEMATOCRIT 38.8 % (42.0-54.0); LYMPHOCYTES # (AUTO) 0.7 X10^3/uL (1.3-2.9); LYMPHOCYTES % (AUTO) 10.6 % (21.0-51.0); MEAN CORPUSCULAR HEMOGLOBIN 26.9 pg (27.0-34.0); MEAN CORPUSCULAR HGB CONC 31.4 g/dL (33.0-35.0); MEAN CORPUSCULAR VOLUME 85.8 fL (80.0-100.0); MONOCYTES # (AUTO) 0.7 x10^3/uL (0.3-0.8); MONOCYTES % (AUTO) 10.6 % (0.0-13.0); NEUTROPHILS # (AUTO) 4.2 x10^3/uL (2.2-4.8); NEUTROPHILS % (AUTO) 66.4 % (42.0-75.0); PLATELET COUNT 186 X10^3/uL (150.0-450.0); RED BLOOD COUNT 4.52 X10^6/uL (4.7-6.0); RED CELL DISTRIBUTION WIDTH 17.8 % (11.6-16.5); WHITE BLOOD COUNT 6.3 X10^3/uL (3.6-10.0)
[2023-01-10 06:39] LABS: ALANINE AMINOTRANSFERASE 13 Units/L (12-78); ALBUMIN 2.5 g/dL (3.4-5.0); ALKALINE PHOSPHATASE 246 Units/L (46-116); ASPARTATE AMINO TRANSFERASE 19 Units/L (15-37); BLOOD UREA NITROGEN 43 mg/dL (7-18); CALCIUM 8.4 mg/dL (8.5-10.1); CARBON DIOXIDE 38.2 mmol/L (21-32); CHLORIDE 103 mmol/L (98-107); COR CA(FOR HYPOALB) 9.6 mg/dL (8.5-10.1); CREATININE 1.14 mg/dL (0.70-1.30); GLUCOSE 78 mg/dL (65-99); POTASSIUM 4.7 mmol/L (3.5-5.1); SODIUM 142 mmol/L (136-145); TOTAL PROTEIN 6.8 g/dL (6.4-8.2); eGFR NON BLACK RACES > 60 (>60)
[2023-01-10] MEDS: XOPENEX 1.25 MG/3 ML NEBULE NEB SCH ×2 (08:45→19:40)
--- NOTE | 2023-01-10 09:46 | DR.H&P ---
H&P - History & Physical for Day of: H&P Date: 01/09/23 - Chief Complaint Chief Complaint: SOB, LOW BLOOD PRESSURE - History of Present Illness History of Present Illness: IS A 82 YEAR OLD PATIENT OF OURS. HE HAS A PMH OF CHF, A-FIB, HTN, PA, CABG, HYPOTHYROIDISM, RESTLESS LEG SYNDROME, HYPERLIPIDEMIA, BPH, AND GERD. HE PRESENTED TO THE ER WITH COMPLAINTS OF SHORTNESS OF BREATH AND LOW BLOOD PRESSURE AT HOME. SYMTOMS STARTED UPON AWAKENING. ON ARRIVAL TO THE HOSPITAL, HIS VITALS WERE: 97.7-70-18-98%(ROOM AIR)-103/57. LABS WERE OBTAINED. WBC 6.1, RBC 4.73, HGB 12.5, HCT 40.7, PLT COUNT 182, INR 2.15, PTT 42.6, SODIUM 141, POTASSIUM 5.0, CHLORIDE 103, CARBON DIOXIDE 39.0, BUN 44, CREATININE 1.33, GLUCOSE 114, CALCIUM 8.2, TOTAL BILI 1.40, AST 20, ALT 17, ALK PHOS 260, CREATINE KINASE 48, BNP 1830, TOTAL PROTEIN 7.0, ALBUMIN 2.6. A URINALYSIS WAS OBTAINED AND REVEALED: WBC 0-2, RBC 0-2, LEUKOCYTES NEGATIVE, BACTERIA NEGATIVE. A CHEST XRAY WAS OBTAINED AND REVEALED: There is diffuse increased interstitial lung markings throughout the right and left lung. This is worrisome for pulmonary edema.There is a focus of airspace disease in the right lower lung zone.Implantable cardiac device is again seen without evidence of lead wire fractures with postoperative changes from midline sternotomy. The heart size is enlarged but stable from prior examination.The mediastinum is unremarkable. No gross pneumothorax is seen. There is a small right pleural effusion which is unchanged from prior examination. Tracheal deviation is again seen similar to prior examination. EKG WAS OBTAINED AND REVEALED: VENTRICULAR PACED RHYTHM WITH HR 70 BPM. IN THE ER, HE WAS GIVEN LASIX 40MG IV X 1 DOSE. HE WAS ADMITTED TO THE HOSPITAL OBSERVATION STATUS FOR FURTHER EVALUATION AND TREATMENT OF CHF EXACERBATION, SHORTNESS OF BREATH, HYPO TENSION. HE WAS STARTED ON LASIX 20MG IV Q12H. HIS HOME MEDICATIONS OF LEVOTHYROXINE, ROPINIROLE, DIGOXIN, WARFARIN, TEMAZEPAM, SIMVASTATIN, AND OMEPRAZOLE WERE RESUMED. WE WILL RESTRICT HIS FLUIDS TO LESS THAN 1,000 ML/DAY. OTHERWISE, WE PLAN TO FOLLOW UP WITH AM LABS AND CONTINUE TO MONITOR. TIME SPENT ON CLINICAL ASSESSMENT, REVIEWING LABS AND IMAGING, DECISION MAKING, AND DOCUMENTATION GREATER THAN 75 MINUTES. - Past Medical History Past Medical History: CHF, Dyslipidemia, Hypertension, Hypothyroidism, PA Additional Medical History: A-FIB, BPH - Past Surgical History Surgical History: CABG/Valve Surgery, Ortho Surgery - Family History Family Medical History: Heart Failure - Social History Does patient currently use any type of tobacco product: No Have you used tobacco products in the last 12 months: No Type of Tobacco Use: None Does any household member use tobacco: No Alcohol Use: None Drug Use: None - Review of Systems Constitutional: Weakness Eyes: No Symptoms Reported ENT: No Symptoms Reported Respiratory: See HPI, Shortness of Breath, SOB with Excertion. denies: Cough, Sputum, Wheezing Cardiovascular: Edema (LOWER EXTREMITIES ) Gastrointestinal: No Symptoms Reported Genitourinary: No Symptoms Reported Musculoskeletal: No Symptoms Reported Skin: No Symptoms Reported Neurological: Weakness - Physical Exam Vital Signs: Vital Signs Temperature 98.8 F Temperature 99.1 F Pulse Rate [Left Radial] 70 Pulse Rate [Left Radial] 70 Pulse Rate 75 Pulse Rate 74 Respiratory Rate 20 Respiratory Rate 21 Blood Pressure [Right Arm] 111/58 Blood Pressure [Right Arm] 101/59 O2 Sat by Pulse Oximetry 95 O2 Sat by Pulse Oximetry 90 O2 Sat by Pulse Oximetry 97 O2 Sat by Pulse Oximetry 93 Oriented: Normal Eyes: Normal Ear: Normal Nose: Normal Throat: Normal Respiratory: Diminished Throughout Cardiovascular: Normal : Normal Auscultation: Bowel Sounds: Normal Palpation: Normal Tenderness: Normal Skin: Normal Musculoskeletal: Normal Psychiatric: Normal Mood Description: Calm Affect: Normal Speech Pattern: Clear - Assessment/Plan (1) CHF exacerbation Qualifiers: Heart failure type: unspecified Qualified Code(s): I50.9 - Heart failure, unspecified Status: Acute Plan: admit, fluid restriction, LASIX 20MG IV Q12H, obtain echo, resume home meds (2) Shortness of breath Status: Acute (3) Generalized weakness Status: Acute (4) GERD (gastroesophageal reflux disease) Qualifiers: Esophagitis presence: esophagitis presence not specified Qualified Code(s): K21.9 - Gastro-esophageal reflux disease without esophagitis Status: Chronic Plan: resume omeprazole (5) Hypothyroidism Qualifiers: Hypothyroidism type: acquired Qualified Code(s): E03.9 - Hypothyroidism, unspecified Status: Chronic Plan: resume synthroid (6) Hyperlipidemia Qualifiers: Hyperlipidemia type: mixed hyperlipidemia Qualified Code(s): E78.2 - Mixed hyperlipidemia Status: Chronic Plan: resume simvastatin (7) RLS (restless legs syndrome) Status: Chronic Plan: resume requip (8) Atrial fibrillation Qualifiers: Atrial fibrillation type: unspecified Qualified Code(s): I48.91 - Unspecified atrial fibrillation Status: Chronic Plan: resume coumadin and digoxin - Allergies Allergies/Adverse Reactions: Allergies Allergy/AdvReac Type Severity Reaction Status Date / Time codeine Allergy Verified 03/08/22 11:02 - Medications Home Medications: Home Medications Medication Instructions Recorded Confirmed levothyroxine 50 mcg tablet 50 mcg PO DAILY 08/04/16 01/09/23 omeprazole 20 mg capsule,delayed 20 mg PO DAILY 08/04/16 01/09/23 release warfarin 5 mg tablet 5 mg PO DAILY 08/04/16 01/09/23 simvastatin 20 mg tablet 20 mg PO HS 05/03/19 01/09/23 clonazepam 0.5 mg tablet 0.5 mg PO HS SLEEP 08/18/20 03/08/22 carvedilol 3.125 mg tablet 3.125 mg PO BID 08/20/20 03/08/22 temazepam 30 mg capsule 30 mg PO QHS PRN 03/08/22 01/09/23 testosterone cypionate 200 mg/mL 1 ea subcut WEEKLY 03/08/22 01/09/23 intramuscular oil tamsulosin 0.4 mg capsule 0.4 mg PO QDAY 01/09/23 01/09/23 Previous Rx's Medication Instructions Recorded digoxin 125 mcg (0.125 mg) tablet 0.125 mg PO DAILY #30 tabs 08/21/20 (Digitek) furosemide 40 mg tablet 40 mg PO BID PRN #60 tabs 08/21/20 ropinirole 1 mg tablet 1 mg PO QHS #30 tabs 08/21/20 sacubitril 24 mg-valsartan 26 mg 0.5 tab PO BID #30 tabs 08/21/20 tablet (Entresto) carvedilol 6.25 mg tablet (Coreg) 6.25 mg PO BID #60 tabs 03/13/22 levofloxacin 500 mg tablet 500 mg PO Q24H #5 tabs 03/13/22 sacubitril 24 mg-valsartan 26 mg 1 tab PO BID #60 tabs 03/13/22 tablet (Entresto)
[2023-01-10] MEDS: LASIX IVP SCH ×2 (10:01→16:37)
[2023-01-10] MEDS: PriLOSEC PO SCH (10:01)
[2023-01-10] MEDS: SYNTHROID 50 mcg TAB PO SCH (10:02)
[2023-01-10] MEDS: LANOXIN or DIGITEK PO SCH (10:39)
[2023-01-10] MEDS: RESTORIL CAP 15 MG PO PRN (20:30)
[2023-01-10] MEDS: ZOCOR TAB 20 MG PO SCH (20:31)
[2023-01-10] MEDS: REQUIP PO SCH (20:31)
[2023-01-10] MEDS: COUMADIN TAB 5 MG (JANTOVEN) PO SCH (20:32)
[2023-01-11] MEDS: XOPENEX 1.25 MG/3 ML NEBULE NEB SCH ×3 (01:40→20:30)
[2023-01-11] MEDS ORDERED: XOPENEX 1.25 MG/3 ML NEBULE NEB ONE (01:43)
[2023-01-11 05:47] LABS: BASOPHILS # (AUTO) 0.1 X10^3/uL (0.0-0.1); EOSINOPHILS # (AUTO) 0.8 x10^3/uL (0.0-0.2); EOSINOPHILS % (AUTO) 12.8 % (0.9-2.9); HEMATOCRIT 38.7 % (42.0-54.0); HEMOGLOBIN 12.1 g/dL (13.5-18.0); LYMPHOCYTES # (AUTO) 0.7 X10^3/uL (1.3-2.9); LYMPHOCYTES % (AUTO) 12.6 % (21.0-51.0); MEAN CORPUSCULAR HEMOGLOBIN 26.5 pg (27.0-34.0); MEAN CORPUSCULAR HGB CONC 31.3 g/dL (33.0-35.0); MEAN CORPUSCULAR VOLUME 84.7 fL (80.0-100.0); MEAN PLATELET VOLUME 7.8 fL (7.4-11.0); MONOCYTES # (AUTO) 0.7 x10^3/uL (0.3-0.8); MONOCYTES % (AUTO) 11.2 % (0.0-13.0); NEUTROPHILS # (AUTO) 3.7 x10^3/uL (2.2-4.8); NEUTROPHILS % (AUTO) 62.4 % (42.0-75.0); PLATELET COUNT 186 X10^3/uL (150.0-450.0); RED BLOOD COUNT 4.57 X10^6/uL (4.7-6.0); RED CELL DISTRIBUTION WIDTH 18.2 % (11.6-16.5); WHITE BLOOD COUNT 5.9 X10^3/uL (3.6-10.0)
[2023-01-11 05:56] LABS: ALANINE AMINOTRANSFERASE 11 Units/L (12-78); ALBUMIN 2.3 g/dL (3.4-5.0); ALKALINE PHOSPHATASE 232 Units/L (46-116); ASPARTATE AMINO TRANSFERASE 16 Units/L (15-37); BLOOD UREA NITROGEN 40 mg/dL (7-18); CALCIUM 8.2 mg/dL (8.5-10.1); CARBON DIOXIDE 41.1 mmol/L (21-32); CHLORIDE 101 mmol/L (98-107); COR CA(FOR HYPOALB) 9.6 mg/dL (8.5-10.1); CREATININE 1.17 mg/dL (0.70-1.30); GLUCOSE 77 mg/dL (65-99); POTASSIUM 4.4 mmol/L (3.5-5.1); SODIUM 144 mmol/L (136-145); TOTAL PROTEIN 6.5 g/dL (6.4-8.2); eGFR NON BLACK RACES > 60 (>60)
[2023-01-11] MEDS: ROBITUSSIN DM PO PRN ×2 (06:08→14:15)
[2023-01-11] MEDS: SYNTHROID 50 mcg TAB PO SCH (08:07)
[2023-01-11] MEDS: PriLOSEC PO SCH (08:07)
[2023-01-11] MEDS: LASIX IVP SCH ×2 (08:07→17:48)
[2023-01-11] MEDS: LANOXIN or DIGITEK PO SCH (08:07)
--- NOTE | 2023-01-11 11:14 | PCM.PROG ---
Progress Note - Progress Note for Day of Date of Exam: 01/11/23 - Subjective Subjective: IS CURRENTLY OBSERVATION STATUS FOR TREATMENT OF CHF EXACERBATION, SHORTNESS OF BREATH, GENERALIZED WEAKNESS, AND HYPOTENSION. HE HAS A PMH OF CHF, A-FIB, HTN, [place], CABG, HYPOTHYROIDISM, RESTLESS LEG SYNDROME, HYPERLIPIDEMIA, BPH, AND GERD. TODAY, HE IS ALERT AND ORIENTED, LYING IN BED ON MORNING ROUNDS. HE CONTINUES TO COMPLAIN OF SHORTNESS OF BREATH THIS MORNING. HE DENIES SIGNIFICANT IMPROVEMENT IN SYMPTOMS SINCE ADMISSION. UPON EXAMINATION, HEART IS REGULAR IN RATE AND RHYTHM. BILATERAL LUNGS ARE NOTED WITH CRACKLES. ABDOMEN IS FLAT, SOFT, AND NON-TENDER WITH NORMAL BOWEL SOUNDS NOTED IN ALL QUADRANTS. GOOD RANGE OF MOTION NOTED TO UPPER AND LOWER EXTREMITIES. 1+ EDEMA NOTED TO LOWER EXTREMITIES. HIS VITALS THIS MORNING WERE: 98.5-82-18-93%-100/59. LABS WERE OBTAINED. WBC 5.9, RBC 4.57, HGB 12.1, HCT 38.7, PLT COUNT 186, SODIUM 144, POTASSIUM 4.4, CHLORIDE 101, CARBON DIOXIDE 41.1, BUN 40, CREATININE 1.17, GLUCOSE 77, CALCIUM 8.2, TOTAL BILI 1.80, AST 16, ALT 11, ALK PHOS 232, BNP 1900, TOTAL PROTEIN 6.5, ALBUMIN 2.3. AN ECHOCARDIOGRAM WAS OBTAINED YESTERDAY AND REVEALED AN EJECTION FRACTION OF 27%. RVSP 33mmHg. HE IS CURRENTLY RECEIVING LASIX 20MG IV Q12H AND XOPENEX NEB [place] BID. HIS HOME MEDICATIONS OF LEVOTHYROXINE, ROPINIROLE, DIGOXIN, WARFARIN, TEMAZEPAM, SIMVASTATIN, AND OMEPRAZOLE WERE RESUMED. WE WILL RESTRICT HIS FLUIDS TO LESS THAN 1,000 ML/DAY. WE WILL ORDER FOR HIM TO WEAR THE BIPAP TODAY. OTHERWISE, WE PLAN TO FOLLOW UP WITH AM LABS AND CONTINUE TO MONITOR. TIME SPENT ON CLINICAL ASSESSMENT, REVIEWING LABS AND IMAGING, DECISION MAKING, AND DOCUMENTATION GREATER THAN 45 MINUTES. - Past Medical Family Social History Past Med/Fam/Surg Hx: No changes since H&P Allergies: Allergies codeine Allergy (Verified 03/08/22 11:02) - Review of Systems ROS: No change since H&P - Vital Signs and I&O's Vital Signs: Vital Signs Temperature 98.5 F Pulse Rate [Left Radial] 82 Pulse Rate 62 Pulse Rate 96 Respiratory Rate 18 Blood Pressure [Right Arm] 100/59 O2 Sat by Pulse Oximetry 99 O2 Sat by Pulse Oximetry 93 Intake and Output: Intake & Output 01/08/23 01/09/23 01/10/23 01/11/23 11:59 11:59 11:59 11:59 Intake Total 1570 / 1570 Output Total 1230 / 1230 1230 / 1230 Balance -1220 / -1220 340 / 340 - Physical Exam Oriented: Normal Eyes: Normal Ear: Normal Nose: Normal Throat: Normal Cardiovascular: Normal : Normal Auscultation: Bowel Sounds: Normal Palpation: Normal Tenderness: Normal Skin: Normal Musculoskeletal: Normal Psychiatric: Normal Mood Description: Calm Affect: Normal Speech Pattern: Clear, Appropriate - Laboratory and Diagnostics Result Diagrams: 01/11/23 05:03 01/11/23 05:03 Labs: Laboratory WBC 5.9 X10^3/uL (3.6-10.0) 01/11/23 05:03 RBC 4.57 X10^6/uL (4.7-6.0) L 01/11/23 05:03 Hgb 12.1 g/dL (13.5-18.0) L 01/11/23 05:03 Hct 38.7 % (42.0-54.0) L 01/11/23 05:03 MCV 84.7 fL (80.0-100.0) 01/11/23 05:03 MCH 26.5 pg (27.0-34.0) L 01/11/23 05:03 MCHC 31.3 g/dL (33.0-35.0) L 01/11/23 05:03 RDW 18.2 % (11.6-16.5) H 01/11/23 05:03 Plt Count 186 X10^3/uL (150.0-450.0) 01/11/23 05:03 MPV 7.8 fL (7.4-11.0) 01/11/23 05:03 Neut % (Auto) 62.4 % (42.0-75.0) 01/11/23 05:03 Lymph % (Auto) 12.6 % (21.0-51.0) L 01/11/23 05:03 [place] % (Auto) 11.2 % (0.0-13.0) 01/11/23 05:03 Eos % (Auto) 12.8 % (0.9-2.9) H 01/11/23 05:03 Baso % (Auto) 1.0 % (0.2-1.0) 01/11/23 05:03 Neut # (Auto) 3.7 x10^3/uL (2.2-4.8) 01/11/23 05:03 Lymph # (Auto) 0.7 X10^3/uL (1.3-2.9) L 01/11/23 05:03 [place] # (Auto) 0.7 x10^3/uL (0.3-0.8) 01/11/23 05:03 Eos # (Auto) 0.8 x10^3/uL (0.0-0.2) H 01/11/23 05:03 Baso # (Auto) 0.1 X10^3/uL (0.0-0.1) 01/11/23 05:03 Absolute Nucleated RBC 0.1 /100WBC 01/11/23 05:03 PT 23.6 SECONDS (11.8-14.3) 01/09/23 19:00 INR Target Range - 01/09/23 19:00 INR 2.15 (0.8-1.3) H 01/09/23 19:00 APTT 42.6 SECONDS (22.9-36.5) H 01/09/23 19:00 PTT Comment - 01/09/23 19:00 Sodium 144 mmol/L (136-145) 01/11/23 05:03 Corrected Sodium TNP 01/11/23 05:03 Potassium 4.4 mmol/L (3.5-5.1) 01/11/23 05:03 Chloride 101 mmol/L (98-107) 01/11/23 05:03 Carbon Dioxide 41.1 mmol/L (21-32) H 01/11/23 05:03 BUN 40 mg/dL (7-18) H 01/11/23 05:03 Creatinine 1.17 mg/dL (0.70-1.30) 01/11/23 05:03 Est GFR (MDRD) Af Amer > 60 (>60) 01/11/23 05:03 Est GFR (MDRD) Non-Af > 60 (>60) 01/11/23 05:03 Glucose 77 mg/dL (65-99) 01/11/23 05:03 Calcium 8.2 mg/dL (8.5-10.1) L 01/11/23 05:03 Corrected Calcium 9.6 mg/dL (8.5-10.1) 01/11/23 05:03 Total Bilirubin 1.80 mg/dL (0.2-1.0) H 01/11/23 05:03 AST 16 Units/L (15-37) 01/11/23 05:03 ALT 11 Units/L (12-78) L 01/11/23 05:03 Alkaline Phosphatase 232 Units/L (46-116) H 01/11/23 05:03 Creatine Kinase 48 Units/L (39-308) 01/09/23 19:00 Troponin I High Sens 38.2 ng/L (4.0-60.0) 01/09/23 19:00 B-Natriuretic Peptide 1900 pg/mL (0-79) H 01/11/23 05:03 Total Protein 6.5 g/dL (6.4-8.2) 01/11/23 05:03 Albumin 2.3 g/dL (3.4-5.0) L 01/11/23 05:03 Globulin 4.2 g/dL (2.5-4.5) 01/11/23 05:03 Albumin/Globulin Ratio 0.5 Ratio (1.1-2.1) L 01/11/23 05:03 Specimen Type Clean catch urine 01/09/23 19:53 Urine Color Dark yellow (YELLOW) 01/09/23 19:53 Urine Appearance Clear (CLEAR) 01/09/23 19:53 Urine pH 6.0 (5.0 - 8.0) 01/09/23 19:53 Ur Specific [place] 1.020 (1.000-1.030) 01/09/23 19:53 Urine Protein 1+ (NEGATIVE) 01/09/23 19:53 Urine Glucose (UA) Negative (NEGATIVE) 01/09/23 19:53 Urine Ketones Negative (NEGATIVE) 01/09/23 19:53 Urine Blood Negative (NEGATIVE) 01/09/23 19:53 Urine Nitrite Negative (NEGATIVE) 01/09/23 19:53 Urine Bilirubin Negative (NEGATIVE) 01/09/23 19:53 Urine Urobilinogen 2+ (NORMAL) 01/09/23 19:53 Ur Leukocyte Esterase Negative (NEGATIVE) 01/09/23 19:53 Urine RBC 0-2 /HPF (0-3) 01/09/23 19:53 Urine WBC 0-2 /HPF (0-5) 01/09/23 19:53 Ur Squamous Epith Cells Few /HPF (NEGATIVE) 01/09/23 19:53 Urine Bacteria Negative /HPF (NEGATIVE) 01/09/23 19:53 Hyaline Casts Few /LPF (NEGATIVE) 01/09/23 19:53 Ur Culture Indicated? No/not indicated 01/09/23 19:53 Digoxin 1.41 ng/mL (0.9-2) 01/10/23 05:11 SARS-CoV-2 (PCR) Negative (NEGATIVE) 01/10/23 11:55 Influenza Type A (PCR) Negative (NEGATIVE) 01/10/23 11:55 Influenza Type B (PCR) Negative (NEGATIVE) 01/10/23 11:55 RSV (PCR) Negative (NEGATIVE) 01/10/23 11:55 - Plan (1) CHF exacerbation Status: Acute Qualifiers: Heart failure type: unspecified Qualified Code(s): I50.9 - Heart failure, unspecified Plan: BIPAP fluid restriction, LASIX 20MG IV Q12H, XOPENEX NEB [place], resume home meds (2) Shortness of breath Status: Acute (3) Generalized weakness Status: Acute (4) GERD (gastroesophageal reflux disease) Status: Chronic Qualifiers: Esophagitis presence: esophagitis presence not specified Qualified Code(s): K21.9 - Gastro-esophageal reflux disease without esophagitis Plan: resume omeprazole (5) Hypothyroidism Status: Chronic Qualifiers: Hypothyroidism type: acquired Qualified Code(s): E03.9 - Hypothyroidism, unspecified Plan: resume synthroid (6) Hyperlipidemia Status: Chronic Qualifiers: Hyperlipidemia type: mixed hyperlipidemia Qualified Code(s): E78.2 - Mixed hyperlipidemia Plan: resume simvastatin (7) RLS (restless legs syndrome) Status: Chronic Plan: resume requip (8) Atrial fibrillation Status: Chronic Qualifiers: Atrial fibrillation type: unspecified Qualified Code(s): I48.91 - Unspecified atrial fibrillation Plan: resume coumadin and digoxin
--- NOTE | 2023-01-11 12:52 | RAD ---
EXAM:CHEST x-ray, 1 VIEWHISTORY:SOB ; cardiomegaly-COMPARISON:X-ray 01/09/2023FINDINGS:Cardiac device leads are unchanged in position. There is persistent cardiomegaly with possible CHF. Abnormal interstitial densities in the lungs could be pulmonary edema. These are similar to prior study. Moderate right-sided and small left-sided pleural effusions persist.IMPRESSION:Appearance of the chest is unchanged.THIS IS AN ELECTRONICALLY VERIFIED FINAL [id number]/11/2023 12:49 PM - Electronically signed by Javier Cole MD
[2023-01-11] MEDS: RESTORIL CAP 15 MG PO PRN (20:27)
[2023-01-11] MEDS: REQUIP PO SCH (20:28)
[2023-01-11] MEDS: ZOCOR TAB 20 MG PO SCH (20:29)
[2023-01-11] MEDS: COUMADIN TAB 5 MG (JANTOVEN) PO SCH (20:29)
[2023-01-12 06:15] LABS: ALANINE AMINOTRANSFERASE 11 Units/L (12-78); ALBUMIN 2.3 g/dL (3.4-5.0); ALKALINE PHOSPHATASE 243 Units/L (46-116); ASPARTATE AMINO TRANSFERASE 17 Units/L (15-37); BLOOD UREA NITROGEN 42 mg/dL (7-18); CALCIUM 8.3 mg/dL (8.5-10.1); CARBON DIOXIDE 40.8 mmol/L (21-32); CHLORIDE 102 mmol/L (98-107); COR CA(FOR HYPOALB) 9.7 mg/dL (8.5-10.1); CREATININE 1.38 mg/dL (0.70-1.30); GLUCOSE 83 mg/dL (65-99); POTASSIUM 4.4 mmol/L (3.5-5.1); SODIUM 143 mmol/L (136-145); TOTAL PROTEIN 6.7 g/dL (6.4-8.2); eGFR NON BLACK RACES 53 (>60)
[2023-01-12 06:30] LABS: BASOPHILS # (AUTO) 0.1 X10^3/uL (0.0-0.1); BASOPHILS % (AUTO) 1.3 % (0.2-1.0); EOSINOPHILS # (AUTO) 0.7 x10^3/uL (0.0-0.2); EOSINOPHILS % (AUTO) 11.2 % (0.9-2.9); HEMATOCRIT 39.3 % (42.0-54.0); HEMOGLOBIN 12.1 g/dL (13.5-18.0); LYMPHOCYTES # (AUTO) 0.7 X10^3/uL (1.3-2.9); LYMPHOCYTES % (AUTO) 11.7 % (21.0-51.0); MEAN CORPUSCULAR HEMOGLOBIN 26.5 pg (27.0-34.0); MEAN CORPUSCULAR HGB CONC 30.9 g/dL (33.0-35.0); MEAN CORPUSCULAR VOLUME 85.7 fL (80.0-100.0); MEAN PLATELET VOLUME 8.2 fL (7.4-11.0); MONOCYTES # (AUTO) 0.7 x10^3/uL (0.3-0.8); MONOCYTES % (AUTO) 11.2 % (0.0-13.0); NEUTROPHILS # (AUTO) 4.1 x10^3/uL (2.2-4.8); NEUTROPHILS % (AUTO) 64.6 % (42.0-75.0); PLATELET COUNT 189 X10^3/uL (150.0-450.0); RED BLOOD COUNT 4.59 X10^6/uL (4.7-6.0); WHITE BLOOD COUNT 6.4 X10^3/uL (3.6-10.0)
--- NOTE | 2023-01-12 07:54 | RAD ---
EXAM:Portable chestHISTORY:Shortness of breath, congestive heart failureCOMPARISON:01/11/2023FINDINGS:The re is a pacemaker present on the left obscuring a portion of the left upper lobe. Patient is status post median sternotomy and CABG. Heart is enlarged. Interstitial remains slightly prominent possibly due to mild interstitial edema. No alveolar edema, alveolar infiltrates, or areas of consolidation identified. Small right pleural effusion is likely.IMPRESSION:Cardiomegaly likely with mild interstitial edema, unchangedNo acute infiltratesSmall right pleural effusionTHIS IS AN ELECTRONICALLY VERIFIED FINAL [id number]/12/2023 7:46 AM - Electronically signed by Kian Kuhn MD
[2023-01-12] MEDS: XOPENEX 1.25 MG/3 ML NEBULE NEB SCH (08:00)
[2023-01-12] MEDS: PriLOSEC PO SCH (08:35)
[2023-01-12] MEDS: LANOXIN or DIGITEK PO SCH (08:35)
[2023-01-12] MEDS: SYNTHROID 50 mcg TAB PO SCH (08:35)
[2023-01-12] MEDS: LASIX IVP SCH (08:35)
[2023-01-12 09:44] VITALS: BP 102/58; PULSE 71; RESP 24; TEMP 97; O2SAT 95
== END 2023-01-12 11:20 | disposition home health service (06) | DRG 292 ==
LOC: MED/SURG 18:18 → ER 18:18 → MED/SURG 21:39
PROVIDERS: ADMIT Family Medicine; ATTEND Internal Medicine
DX: I48.91 Unspecified atrial fibrillation; I95.89 Other hypotension; J90 Pleural effusion, not elsewhere classified; Z20.822 Contact with and (suspected) exposure to COVID-19; R53.1 Weakness; R26.89 Other abnormalities of gait and mobility; L89.152 Pressure ulcer of sacral region, stage 2; R06.02 Shortness of breath; R79.1 Abnormal coagulation profile; E78.2 Mixed hyperlipidemia; Z73.89 Other problems related to life management difficulty; K21.9 Gastro-esophageal reflux disease without esophagitis; I11.0 Hypertensive heart disease with heart failure; E03.8 Other specified hypothyroidism; G25.81 Restless legs syndrome; I50.9 Heart failure, unspecified